=== PATIENT | male | born 1945 | race Caucasian/White ===

== ENCOUNTER 2016-09-05 15:28 | Inpatient (IN) | payer MEDICARE, OTHER ==
[~2016-09-05] VITALS: Ht 185.4 cm; Wt 75.6 kg
[2016-09-05 17:36] LABS: BASOPHILS 0.5 % (0-2); EOSINOPHILS 1.7 % (0-7); HEMATOCRIT 36.1 % (42.0-54.0); HEMOGLOBIN 11.7 g/dL (13.5-17.5); IMMATURE GRANULOCYTES 0.2 % (0-5); LYMPHOCYTES 17.8 % (15-50); MCH 28.9 pg (26.0-34.0); MCHC 32.4 g/dL (31.0-37.0); MCV 89.1 fL (80.0-100.0); MEAN PLATELET VOLUME 9.6 fL (7.4-10.4); MONOCYTES 11.2 % (2-11); NEUTROPHILS 68.6 % (40-80); PLATELET COUNT 290 10x3/uL (130-400); RBC 4.05 10x6/uL (4.20-6.10); RDW 14.6 % (11.5-14.5); WBC 10.9 10x3/uL (4.8-10.8)
[2016-09-05 17:55] LABS: ALBUMIN 2.9 g/dL (3.4-5.0); ALKALINE PHOSPHATASE 73 U/L (46-116); ALT (SGPT) 13 U/L (10-68); BILIRUBIN - TOTAL 0.19 mg/dL (0.2-1.3); CALC OSMOLALITY 280 mosm/kg (275-300); CALCIUM 7.9 mg/dL (8.5-10.1); CARBON DIOXIDE 27.9 mmol/L (21.0-32.0); CHLORIDE - SERUM 106 mmol/L (98-107); CREATININE - SERUM 1.7 mg/dL (0.6-1.3); GLUCOSE 100 mg/dL (74-106); POTASSIUM - SERUM 4.4 mmol/L (3.5-5.1); PROTEIN - SERUM 6.4 g/dL (6.4-8.2); SODIUM 139 mmol/L (136-145); UREA NITROGEN 21 mg/dL (7-18); eGFR NON AFRICAN AMERICAN 42 mL/min (90-120)
[2016-09-05 18:01] LABS: CKMB 0.9 U/L (0.0-3.6); CREATINE KINASE 104 UL (21-232); MAGNESIUM - SERUM 2.2 mg/dL (1.8-2.4); TROPONIN-I 0.026 ng/mL (0.000-0.060)
[2016-09-05 19:08] LABS: APPEARANCE HAZY (CLEAR); BILIRUBIN 1+ (NEGATIVE); COLOR YELLOW (YELLOW); GLUCOSE NEGATIVE (NEGATIVE); KETONE NEGATIVE (NEGATIVE); LEUKOCYTE ESTERASE TRACE (NEGATIVE); NITRITE NEGATIVE (NEGATIVE); PROTEIN TRACE mg/dL (NEGATIVE); SPECIFIC GRAVITY 1.025 (1.005-1.020); UROBILINOGEN NORMAL (NORMAL)
[2016-09-05 19:12] LABS: BACTERIA MODERATE /hpf (NONE SEEN); EPITHELIAL CELLS 0-5 /hpf (0-5); GRANULAR CAST 0-5 /lpf (NONE SEEN); MUCUS >1+ /lpf (NONE SEEN); RED CELLS - URINE 0-5 /hpf (0-5); WAXY CAST RARE /lpf (NONE SEEN); WHITE CELLS - URINE 0-5 /hpf (0-5)
[2016-09-05 19:13] LABS: AMORPHOUS SEDIMENT >1+ /lpf (NONE SEEN)
[2016-09-05 21:30] LABS: CKMB 0.4 U/L (0.0-3.6); CREATINE KINASE 118 UL (21-232)
--- NOTE | 2016-09-05 21:37 | NUR ---
PT BROUGHT IN BY BED TO UNIT BY ER STAFF.
--- NOTE | 2016-09-05 21:45 | NUR ---
PT IN BED WITH HOB UP FOR COMFORT. AND SON AT BEDSIDE. ALERT & ORIENTED. NO O2. LEFT HAND NS @ 75ML/HR. FALL PRECAUTIONS. TELEMETRY. BED IN LOWEST POSITION AND CALL LIGHT WITHIN REACH.
[2016-09-05] MEDS ORDERED: CELEXA40 MG PO (22:02)
[2016-09-05] MEDS ORDERED: NAMENDA XR28 MG PO (22:02)
[2016-09-05] MEDS ORDERED: CARAFATE1 G PO (22:04)
[2016-09-05] MEDS ORDERED: PLAVIX75 MG PO (22:04)
[2016-09-05] MEDS ORDERED: COZAAR100 MG PO (22:05)
[2016-09-05] MEDS ORDERED: NORVASC5 MG PO (22:05)
[2016-09-05] MEDS ORDERED: VITAMIN D31000 UNIT PO (22:06)
[2016-09-05] MEDS ORDERED: SAW PALMETTO450 MG PO (22:08)
[2016-09-05] MEDS ORDERED: GAS-X125 M1 PO (22:10)
--- NOTE | 2016-09-05 22:37 | NUR ---
RN TO DO ASSESSMENT.
[2016-09-06] VITALS: BP 99/58
--- NOTE | 2016-09-06 | NUR ---
PT LYING IN BED. EYES CLOSED. RESP. EVEN. BED IN LOWEST POSITION AND CALL LIGHT WITHIN REACH.
[2016-09-06 03:59] LABS: CKMB 0.5 U/L (0.0-3.6); CREATINE KINASE 122 UL (21-232); TROPONIN-I 0.019 ng/mL (0.000-0.060)
--- NOTE | 2016-09-06 07:28 | NUR ---
PATIENT RESTING QUIETLY IN THE BED. PATIENT IS AWAKE, ALERT, AND ORIENTED TO NAME ONLY. PATIENT IS DISORIENTED TO PLACE, TIME, AND SITUATION. PATIENT DENIES ANY PAIN AT PRESENT TIME. PATIENT STATES THAT HE DOES NOT REMEMBER FALLING AT HOME AND DOES NOT REMEMBER COMING TO THE HOSPITAL. BED ALARM IS ON FOR PATIENT'S SAFETY. IV SITE PATENT WITHOUT ANY S/S OF INFECTION NOTED IN PATIENT'S LEFT HAND. CALL LIGHT IN PATIENT'S REACH. PATIENT DENIES ANY NEEDS AT PRERSENT TIME. WILL MONITOR PATIENT.
[2016-09-06 07:34] VITALS: BP 117/64
[2016-09-06 11:00] LABS: CKMB 0.5 U/L (0.0-3.6); CREATINE KINASE 119 UL (21-232); TROPONIN-I < 0.017 ng/mL (0.000-0.060)
[2016-09-06 11:50] VITALS: BP 128/68
--- NOTE | 2016-09-06 14:15 | NUR ---
SCD'S ON LE
[2016-09-06 14:27] VITALS: BP 117/64; BMI 21.1
[2016-09-06 15:31] VITALS: BP 128/68
--- NOTE | 2016-09-06 16:30 | NUR ---
PATIENT UP TO THE BATHROOM WITH HIS ASSISTING HIM. NO COMPLAINTS OF DIZZINESS OR PAIN. PATIENT AMBULATED WITHOUT ANY PROBLEMS NOTED. WILL CONTINUE TO MONITOR PATIENT.
--- NOTE | 2016-09-06 19:44 | NUR ---
PY LYING IN BED WITH HOB UP FOR COMFORT. PT STATES HE FEELS HOT BUT HE HAS A PAIN LEVEL OF 0/10. SCD'S. TELEMETRY. NO O2. LEFT HAND NS @ 75ML/HR. BED ALARM. FAMILY @ BEDSIDE. BED IN LOWEST POSITION AND CALL LIGHT WIHTIN REACH.
[2016-09-06 20:59] VITALS: BP 153/80
[2016-09-07 01:20] VITALS: BP 158/83
--- NOTE | 2016-09-07 01:50 | NUR ---
PT LYING IN BED. EYES CLOSED. CHEST RISING AND FALLING. BED IN LOWEST POSITION AND CALL LIGHT WITHIN REACH.
--- NOTE | 2016-09-07 01:53 | NUR ---
PT'S BED ALARM WAS GOING OFF. WALKED INTO PT'S ROOM HE WAS ATTEMPTING TO GET OUT OF BED. TURNED OFF ALARM AND ASSISTED PT TO THE BATHROOM AND BACK TO BED. ON PT'S BEDSIDE TABLE WAS HIS TELEMETRY THAT HE HAD TAKEN OFF AND IV THAT HE HAD RIPPED OUT. CTAH TIP INTACT. INFORMED PT THAT HE IS IN THE HOSPITAL AND HE CANT TAKE THAT OFF OR TAKE OUT HIS IV PT STATES THAT HE WAS SORRY. WILL ATTEMOT TO REINSERT A NEW IV AND MONITOR APPLIED BACK TO PT.
--- NOTE | 2016-09-07 02:25 | NUR ---
LEFT FA 20 GAUGE INSERTED ON 1ST ATTEMPT. PT TOLERATED PROCEDURE WELL.
--- NOTE | 2016-09-07 03:05 | NUR ---
PT SITTING ON SIDE OF BED. BED ALARM IN PLACE SO THAT PT DOES NOT GET UP UNASSISTED. CPOC.
--- NOTE | 2016-09-07 03:09 | NUR ---
PT'S BED ALARM WAS GOING OFF. PT WAS LOOKING AROUND TRYING TO FIGURE OUT "HOW TO TURN IT OFF." PT'S SURGICAL ATTENDANT WAS LAYING ON BED AND ALSO HIS IV THAT HE RIPPED OUT. BLOOD ON BED. CATH TIP INTACT. WILL ATTEMPT TO RESITE IV AND WILL HOOK PT BACK UP TO MONITOR AND CHANGE PT'S BED.
--- NOTE | 2016-09-07 03:19 | NUR ---
PT RECEIVING BED BATH BY BENITA SERRATO. WILL ATTACH PT TO TELEMETRY WHEN PT IS DONE WITH BATH.
--- NOTE | 2016-09-07 03:26 | NUR ---
LOGISTICS LEAD PROVIDING TOTAL BED BATH/LINEN CHANGE. PT CONFUSED AND HAS PULLED OUT IV.
--- NOTE | 2016-09-07 05:02 | NUR ---
SINAI KEY INSERTED LEFT WRIST 20 GAUGE. PT TOLERATED PROCEDURE WELL.
[2016-09-07 05:04] VITALS: BP 147/84
[2016-09-07 05:28] LABS: BASOPHILS 0.6 % (0-2); EOSINOPHILS 3.3 % (0-7); HEMATOCRIT 38.8 % (42.0-54.0); HEMOGLOBIN 12.7 g/dL (13.5-17.5); IMMATURE GRANULOCYTES 0.2 % (0-5); LYMPHOCYTES 23.3 % (15-50); MCH 28.5 pg (26.0-34.0); MCHC 32.7 g/dL (31.0-37.0); MCV 87.2 fL (80.0-100.0); MEAN PLATELET VOLUME 10.1 fL (7.4-10.4); MONOCYTES 9.4 % (2-11); NEUTROPHILS 63.2 % (40-80); PLATELET COUNT 297 10x3/uL (130-400); RBC 4.45 10x6/uL (4.20-6.10); RDW 14.4 % (11.5-14.5); WBC 11.9 10x3/uL (4.8-10.8)
[2016-09-07 06:04] LABS: ALBUMIN 3.2 g/dL (3.4-5.0); ANION GAP 12.9 mmol/L (8-16); BILIRUBIN - TOTAL 0.44 mg/dL (0.2-1.3); CALCIUM 8.2 mg/dL (8.5-10.1); CARBON DIOXIDE 25.9 mmol/L (21.0-32.0); CREATININE - SERUM 1.4 mg/dL (0.6-1.3); POTASSIUM - SERUM 3.8 mmol/L (3.5-5.1); PROTEIN - SERUM 6.9 g/dL (6.4-8.2)
[2016-09-07 07:00] LABS: ERYTHROCYTE SEDIMENTATION RATE 15 mm/hr (0-20)
--- NOTE | 2016-09-07 07:30 | NUR ---
INTRODUCED MYSELF TO PT PRIMARY RN FOR TODAYS SHIFT. PT IS ONLY ORIENTED TO HIMSELF. UNWARE OF SITUATION, PLACE OR TIME. EXPLAINED TO PT EVERYTHING AND HE VERBALIZED UNDERSTANDING BUT PT IS KNOWN TO HAVE DEMENTIA AND NEEDS FREQUENTLY REORIENTED AND CUING. PT HAS L.WRIST PIV WITH DRSG CDI AND SWAB CAPS IN USE. SHIFT ASSESSMENT COMPLETED. PT HAS TELEMETRY IN PLACE AND BEING MONITERED PER Merus JIMMIE. PT DENIES ANY CURRENT PAIN OR NEEDS AT THIS TIME. CL IN REACH, BED IN LOWEST, SIDE RAILS X2 AND BUILT IN BED ALARM ON. WILL CPOC.
[2016-09-07 08:12] VITALS: BP 139/87
--- NOTE | 2016-09-07 09:15 | NUR ---
PT SET OFF BED ALARM TRYING TO GET OOB AND GET HIS BOOTS HE STATES. ASSISTED PTS LEGS BACK ON BED AND REMINDED HIM TO CALL ME IF NEEDING OOB. PT VERBALIZED UNDERSTANDING BUT DOES NOT STAY CONSISTENT AND EASILY FORGETS. WILL CTM.
--- NOTE | 2016-09-07 09:41 | NUR ---
PT GOT OOB AND PULLED OUT HIS L.WRIST PIV. WILL RESITE SHORTLY WHEN AVAILABLE. PT IS VERY PLEASANTLY CONFUSED JUST CONSTANTLY FORGETS AND NEEDS CONSTANT CUES/REMINDERS. MAY NEED FAMILY TO SIT WITH IF NEEDING HOSPITAL STAY MUCH LONGER.
[2016-09-07 11:47] VITALS: BP 124/70
--- NOTE | 2016-09-07 13:21 | NUR ---
20 GUAGE PIV INSERTED IN L.FA X1 STICK. INITIATED IVPB ZOSYN INFUSING OVER 4 HOURS. CHANGED OUT TUBING AND PROVIDED NEW TUBING AND DATED ALL LINES. PT HAS AT BEDSIDE AND WAS REORIENTED TO NOT TOUCHING SITE AND TRYING TO KEEP PIV PATENT. PT VERBALIZED UNDERSTANDING AND STATED HE WILL TRY TO REMEMBER. PROVIDED PT WITH A NOTE WELL TO TRY AND REMIND HIM. CL IN REACH, BED IN LOWEST, SIDE RAILS X2. BUILT IN BED ALARM ON. WILL CPOC.
--- NOTE | 2016-09-07 14:05 | NUR ---
STANDUP WEIGHT TAKEN AND RECORDED FOR PT TO HAVE SODIUM BICARB DRIP FOR RENAL PRECAUTION FOR CTA PLANNED. PT WEIGHS 75KG. BICARB WILL BE INITIATED VIA L.FA PIV 20 GUAGE AT 225ML/HR FOR ORDERED DOSE OF 3ML/KG/HR. 22 GUAGE PLACED X2 STICKS VIA R.HAND PIV FOR IV ANBX TO CONTINUE INFUSING. PT HAS FAMILY AT BEDSIDE AND PT VERBALIZED UNDERSTANDING. CL IN REACH, BED IN LOWEST, SIDE RAILS X2 WITH BUILT IN BED ALARM ON. WILL CTM.
--- NOTE | 2016-09-07 15:42 | NUR ---
STOPPED PTS BICARB ORDERED FOR 1HOUR PRIOR TO CTA. PT LEAVING ROOM NOW WITH CT TEAM. NO CURRENT NEEDS. WILL CTM.
[2016-09-07 15:54] VITALS: BP 127/69
--- NOTE | 2016-09-07 16:12 | NUR ---
PT BACK FROM CTA. BICARB RESTARTED AT 75ML/HR PER ORDERED DOSE OF 1ML/KG/HR X6 HOURS. PT RESTING IN BED AND DENIES ANY CURRENT PAIN OR NEEDS. CL IN REACH, BED IN LOWEST, SIDE RAILS X2, FAMILY AT BEDSIDE. WILL CPOC.
--- NOTE | 2016-09-07 16:30 | NUR ---
TEACHING PROVIDED OF CLEAN CATCH SPECIMEN FOR URINE SAMPLE. ASSISTED PT TO BR AND USED CLEANSING WIPES. URINE SPECIMEN COLLECTED AND SENT TO LAB.
--- NOTE | 2016-09-07 19:20 | NUR ---
ALERT/AWAKE TALKING TO VISITOR. DENIES PAIN OR ANY NEEDS. IV'S NOTED IN LT FA AND RT FA INTACT/PATENT. TELEMETRY SHOWS 72 SR. ORIENTED TO CALL LIGHT. BED ALARM IS ON.
[2016-09-07 20:39] VITALS: BP 119/66
--- NOTE | 2016-09-07 21:55 | NUR ---
ADMIN SCHED MEDS WITH SIPS OF WATER. REQUESTED LIGHTS OFF TO SLEEP.
[2016-09-08 00:07] VITALS: BP 123/62
--- NOTE | 2016-09-08 04:11 | NUR ---
ASSISTED TO BR TO VOID AND BACK TO BED. RESET BED ALARM.
[2016-09-08 05:12] VITALS: BP 114/59
[2016-09-08 05:28] LABS: BASOPHILS 0.6 % (0-2); EOSINOPHILS 3.6 % (0-7); HEMATOCRIT 36.4 % (42.0-54.0); IMMATURE GRANULOCYTES 0.3 % (0-5); LYMPHOCYTES 34.2 % (15-50); MCH 29.1 pg (26.0-34.0); MCV 88.3 fL (80.0-100.0); MEAN PLATELET VOLUME 10.1 fL (7.4-10.4); MONOCYTES 11.9 % (2-11); NEUTROPHILS 49.4 % (40-80); PLATELET COUNT 283 10x3/uL (130-400); RBC 4.12 10x6/uL (4.20-6.10); RDW 14.9 % (11.5-14.5); WBC 10.1 10x3/uL (4.8-10.8)
[2016-09-08 05:58] LABS: ALBUMIN 2.9 g/dL (3.4-5.0); ANION GAP 10.4 mmol/L (8-16); BILIRUBIN - TOTAL 0.5 mg/dL (0.2-1.3); CALCIUM 8.3 mg/dL (8.5-10.1); CARBON DIOXIDE 29.6 mmol/L (21.0-32.0); CREATININE - SERUM 1.4 mg/dL (0.6-1.3); PROTEIN - SERUM 6.2 g/dL (6.4-8.2)
--- NOTE | 2016-09-08 07:30 | NUR ---
AM ROUNDS COMPLETED. PT AWAKE AND ALERT SITTING UP IN BED. PT STATES "NICE TO SEE A FAMILIAR FACE" PT DOES HAVE DEMENTIA AND STAYS PLEASANTLY CONFUSED. PT IS ORIENTED TO SELF AND PLACE JUST NOT SITUATION OR TIME. PT STATES HE HAD A GOOD NIGHT AND DENIES ANY CURRENT PAIN OR NEEDS AT THIS TIME. CL IN REACH, BED IN LOWEST, SIDE RAILS X2 AND BUILT IN BED ALARM ON. WILL CPOC.
[2016-09-08 09:15] LABS: ANA REFLEX - DIRECT Negative (Negative)
[2016-09-08 09:40] VITALS: BP 117/71
--- NOTE | 2016-09-08 11:52 | NUR ---
PT JUST FINISHED HIS SHOWER. PROVIDED PT WITH HIS SCHEDULED MEDS BEFORE LUNCH AND ASSISTED BACK INTO BED. APPLIED TELEMETRY BACK IN PLACE AND UNWRAPPED PIVS. PT HAS AT BEDSIDE READY TO EAT. BED IN LOWEST, SIDE RAILS X2 AND BUILT IN BED ALARM ON. NO FURTHER NEEDS. WILL CPOC.
[2016-09-08 12:25] VITALS: BP 123/69
[2016-09-08 13:11] VITALS: Ht 185.4 cm; Wt 75.6 kg
[2016-09-08 13:51] LABS: CHOL - HDL RATIO 4.9 ratio (2.3-4.9); LDL-HDL RATIO 3.5 ratio (1.5-3.5)
--- NOTE | 2016-09-08 14:41 | EC ---
PATIENT:VINCENZO STEVENSON DATE OF SERVICE: 09/07/16 SEX: M MEDICAL RECORD: [id number] DATE OF : [birth year] LOCATION:D.M2 D.213 AGE OF PATIENT: 70 ADMISSION DATE: 09/07/16 REFERRING PHYSICIAN: INTERPRETING PHYSICIAN: DUSTY CALI MD ECHOCARDIOGRAM REPORT ECHO CHARGES 4 ECHO COMPLETE CLINICAL DIAGNOSIS: SYNCOPE ECHOCARDIOGRAPHIC MEASUREMENTS (adult normal given) AC root (d.<3.7cm) 3.4 cm LV Septum d (<1.2 cm> 1.3 cm Valve Excursion 2.0 cm LV Septum (systole) 1.8 cm Left Atria (s.<4.0cm> 3.2 cm LVPW d(<1.2cm) 1.3 cm RV (d.<2.3cm) 2.5 cm LVPW (sytole) 1.9 cm LV diastole(<5.6CM) 5.1 cm MV E-F(>70mm/sec) cm LV systole 3.0 cm LVOT Diameter 1.9 cm MV exc.(>10mm) cm Est.ejection fraction (50-75%) % Pericardial Effusion N DOPPLER: LVIT cm/sec A 88.0 cm/sec E 126 cm/sec LA cm/sec RVSP 39.0 mmHg LVOT 164 cm/sec AOP1/2T m/s Asc. Ao 174 cm/sec RVOT 80.0 cm/sec RA cm/sec PA 111 cm/sec AV Gradient Peak 12.1 mmHg AV Mean 6.9 mmHg AV Area 2.7 cm MV Gradient Peak 7.5 mmHg MV Mean 1.5 mmHg MV Area cm COMMENTS: [facility]: David BURKOE Fibrous Plasterer: 3 Dr. Brandt TAPE# PACS DATE OF SERVICE: 09/07/2016 Adequate 2D echo, color flow, spectral Doppler, and M-mode. Borderline LVH. LV internal dimension is normal. Wall motion is normal. EF is greater than or equal to 55%. Aortic valve is tricuspid. No evidence of stenosis by Doppler interrogation. Mild AI by color flow imaging. The left atrium is normal at 3.2 cm. Mitral valve shows no prolapse. Mild MR. Right-sided chamber is grossly normal. Mild TR. TRANSINT:[id number] Voice Confirmation ID: [id number] DOCUMENT ID: [id number] ECHOCARDIOGRAM REPORT [id number] VINCENZO STEVENSON GREGORY A MD at 1441 CC: [id number] DICTATION DATE: 09/07/16 1435 DONOR CENTER TECHNICIAN: 09/07/16 1844 ADM IN [facility] [address] [place] [address]
[2016-09-08 16:29] VITALS: BP 111/59
[2016-09-08 19:00] VITALS: BP 124/71
--- NOTE | 2016-09-08 21:50 | NUR ---
ADMIN SCHED MEDS WITH SIPS OF WATER AND THE SYRINGE OF MYCOMYST IN ORANGE JUICE. REQUESTED LIGHTS OFF TO SLEEP.
--- NOTE | 2016-09-09 01:30 | NUR ---
RESTING QUIETLY WITH EYES CLOSED. RR EVEN U/L. CL IN REACH.
--- NOTE | 2016-09-09 05:40 | NUR ---
ASSISTED TO BR AND BACK TO BED. ADMIN SCHED MED. REQUESTED ASSISTANCE WITH THE PHONE TO CALL HIS . NO OTHER NEEDS VOICED.
[2016-09-09 06:15] LABS: BASOPHILS 0.7 % (0-2); HEMATOCRIT 38.4 % (42.0-54.0); HEMOGLOBIN 12.7 g/dL (13.5-17.5); IMMATURE GRANULOCYTES 0.2 % (0-5); LYMPHOCYTES 23.7 % (15-50); MCH 29.2 pg (26.0-34.0); MCHC 33.1 g/dL (31.0-37.0); MCV 88.3 fL (80.0-100.0); MEAN PLATELET VOLUME 9.7 fL (7.4-10.4); MONOCYTES 11.6 % (2-11); NEUTROPHILS 58.8 % (40-80); PLATELET COUNT 286 10x3/uL (130-400); RBC 4.35 10x6/uL (4.20-6.10); RDW 14.6 % (11.5-14.5); WBC 11.4 10x3/uL (4.8-10.8)
[2016-09-09 06:22] VITALS: BP 152/81
[2016-09-09 06:44] LABS: ALBUMIN 3.2 g/dL (3.4-5.0); BILIRUBIN - TOTAL 0.5 mg/dL (0.2-1.3); CALCIUM 8.1 mg/dL (8.5-10.1); CARBON DIOXIDE 26.6 mmol/L (21.0-32.0); CREATININE - SERUM 1.2 mg/dL (0.6-1.3); POTASSIUM - SERUM 3.6 mmol/L (3.5-5.1); PROTEIN - SERUM 6.8 g/dL (6.4-8.2)
--- NOTE | 2016-09-09 08:18 | NUR ---
ASSESSMENT COMPLETED. PT IS ALERT, BUT COMFUSED AT TIMES. HAS A BED ALARM ON. REFUES SCDS. LEFT FA D5 1.5 WITH NA BICARB AT 75. DENIES ANY NEEDS. CALL LIGHT IN REACH WITH SR UP. WILL MONITOR
[2016-09-09 08:27] VITALS: BP 140/79
--- NOTE | 2016-09-09 10:56 | NUR ---
AMBULATED IN HALLWAY 500 FEET. TOLORATED WELL WITH GAIT STEADY. WILL MONITOR
[2016-09-09 12:05] VITALS: BP 114/67
--- NOTE | 2016-09-09 12:39 | NUR ---
UP IN BEDSIDE CHAIR. AT BEDSIDE. DENIES ANY NEEDS. WILL MONITOR
[2016-09-09 16:43] VITALS: BP 115/62
--- NOTE | 2016-09-09 17:33 | NUR ---
PT WITH HOB UP FOR DIET. PT ALERT AND ORINTED AT PRESENT TIME. FAMILY AT BEDSIDE. TELEMERTY SHOWS SR WITH RATE OF 66. WILL MONITOR
--- NOTE | 2016-09-09 19:25 | NUR ---
ALERT/AWAKE TALKING TO HIS IN ROOM. DENIES ANY NEEDS OR DISCOMFORTS. IV IN L FA INTACT WITH IVF INFUSING AT 75ML/HR. TELEMETRY SHOWS 64 SR ON MONITOR. REFUSED SCD'S ON. BED ALARM IS ON.
[2016-09-09 20:00] VITALS: BP 131/77
--- NOTE | 2016-09-09 21:20 | NUR ---
ADMIN SCHED MEDS. DENIES ANY NEEDS. BED ALARM IS ON. LEFT DOOR PARTIALLY OPEN TO MONITOR CLOSELY.
[2016-09-10] VITALS: BP 125/68
[2016-09-10 04:00] VITALS: BP 123/61
[2016-09-10 06:23] LABS: BASOPHILS 0.5 % (0-2); EOSINOPHILS 4.4 % (0-7); HEMATOCRIT 35.6 % (42.0-54.0); HEMOGLOBIN 11.7 g/dL (13.5-17.5); IMMATURE GRANULOCYTES 0.2 % (0-5); LYMPHOCYTES 29.9 % (15-50); MCHC 32.9 g/dL (31.0-37.0); MCV 88.1 fL (80.0-100.0); MEAN PLATELET VOLUME 10.1 fL (7.4-10.4); MONOCYTES 11.3 % (2-11); NEUTROPHILS 53.7 % (40-80); PLATELET COUNT 287 10x3/uL (130-400); RBC 4.04 10x6/uL (4.20-6.10); RDW 14.9 % (11.5-14.5)
[2016-09-10 06:49] LABS: ALBUMIN 2.9 g/dL (3.4-5.0); ANION GAP 10.7 mmol/L (8-16); BILIRUBIN - TOTAL 0.37 mg/dL (0.2-1.3); CALCIUM 7.9 mg/dL (8.5-10.1); CREATININE - SERUM 1.2 mg/dL (0.6-1.3); POTASSIUM - SERUM 3.7 mmol/L (3.5-5.1); PROTEIN - SERUM 6.4 g/dL (6.4-8.2)
--- NOTE | 2016-09-10 07:40 | NUR ---
ASSESSMENT COMPLETED. TELEMERTY SHOWS SB 57. LEFT ARM SL. NPO FOR EGD. PT IS COMFUSED AT TIMES. REFUSES TO WEAR SCDS.. DENIES ANY NEEDS. SR UP WITH CALL LIGHT IN REACH BED ALARM ON
[2016-09-10 08:58] VITALS: BP 126/69
--- NOTE | 2016-09-10 10:17 | NUR ---
FAMILY AT BEDSIDE. DENIES ANY NEEDS. CALL LIGHT IN REACH WITH SR UP. WILL MONITOR
--- NOTE | 2016-09-10 10:31 | NUR ---
RESTING QUIETLY EYES CLOSED RESP UNLABORED NAD NOTED
[2016-09-10 11:55] VITALS: BP 119/72
--- NOTE | 2016-09-10 12:29 | NUR ---
Nutrition Follow Up: Pt scheduled to have EGD procedure today and is currently on clear liquids. Prior to this pt was eating 92% meal avg on a regular diet. Wt gain since admit noted. No BM since admit. Meds noted. Labs reviewed. Rec advancing ANNA when medically feasible. RD following.
--- NOTE | 2016-09-10 16:00 | NUR ---
TO GI LAB PER BED.
--- NOTE | 2016-09-10 16:42 | NUR ---
Patient Name: VINCENZO STEVENSON Admission Status: ER Accout number: [id number] Admission Date: 09-07-2016 : 1945 Admission Diagnosis:SYNCOPE AND COLLAPSE Attending: MAR Current LOS: 3 Anticipated DC Date: 09-11-2016 Planned Disposition: Home Primary Insurance: MEDICARE A & B Discharge Planning Comments: * Is the patient Alert and Oriented? Yes 0 * How many steps to enter\exit or inside your home? 3-4 0 * PCP DR. CROCKETT IN [place] 0 * Pharmacy [facility] 0 * Preadmission Environment Home with Family 0 * ADLs Independent 0 * Equipment Cane Walker 0 * Other Equipment USES CANE PRIMARY, WALKER OCCAISIONALLY NO MEDICAL EQUIPMENT PROVIDER PREFERENCE 0 * List name and contact numbers for known caregivers / representatives who currently or will assist patient after discharge: CHEO STEVENSON, SPOUSE, 0 * Community resources currently utilized None 0 * Please name any agencies selected above. NONE 0 * Additional services required to return to the preadmission environment? No 0 * Can the patient safely return to the preadmission environment? Yes 0 * Has this patient been hospitalized within the prior 30 days at any hospital? No 0 CM MET WITH PT IN ROOM TO DISCUSS DISCHARGE PLANNING AND NEEDS. PT REPORTS LIVING AT HOME INDEPENDENTLY WITH HIS SPOUSE. PT HAS CANE AND WALKER WITH NO MEDICAL EQUIPMENT PROVIDER PREFERENCE. PT HAS NO OUTSIDE SERVICES ASSISTING IN THE HOME. CM DISCUSSED AVAILABILITY OF HOME HEALTH, REHAB SERVICES AND MEDICAL EQUIPMENT. PT DENIES DISCHARGE NEEDS, REPORTS HIS SPOUSE WILL PICK HIM UP FOR DISCHARGE HOME. IMPORTANT MESSAGE FROM MEDICARE PROVIDED AND EXPLAINED. Cancer Registrar: Kamran Echeverria
--- NOTE | 2016-09-10 17:23 | NUR ---
BACK FROM GI LAB. V/S STABLE . AWAKE AND ALERT. DENIES ANY NEEDS. FAMILY AT BEDSIDE. PT EATING DINNER WITHOUT ANY DIIICULTY. WILL MONITOR.
--- NOTE | 2016-09-10 18:32 | NUR ---
RESTING QUIETLY. DENIES ANY NEEDS, FAMILY AT BEDSIDE WILL MONITOR
--- NOTE | 2016-09-10 19:15 | NUR ---
RECEIVED REPORT, ASSUMED CARE OF PATIENT. ALERT/AWAKE DENIES ANY NEEDS OR DISCOMFORTS. HIS IS PRESENT IN ROOM. NO QUESTIONS OR CONCERNS VOICED.
[2016-09-10 20:00] VITALS: BP 132/74
[2016-09-11 04:00] VITALS: BP 138/78
--- NOTE | 2016-09-11 04:18 | NUR ---
HAS BEEN GETTING OUT OF BED MULTIPLE TIMES DURING THE NIGHT. REORIENTED TO BEING IN THE HOSPITAL.
[2016-09-11 05:41] LABS: BASOPHILS 0.8 % (0-2); EOSINOPHILS 3.9 % (0-7); HEMATOCRIT 36.9 % (42.0-54.0); IMMATURE GRANULOCYTES 0.2 % (0-5); LYMPHOCYTES 25.6 % (15-50); MCH 28.6 pg (26.0-34.0); MCHC 32.5 g/dL (31.0-37.0); MCV 87.9 fL (80.0-100.0); MEAN PLATELET VOLUME 9.9 fL (7.4-10.4); MONOCYTES 11.6 % (2-11); NEUTROPHILS 57.9 % (40-80); PLATELET COUNT 279 10x3/uL (130-400); RDW 14.6 % (11.5-14.5); WBC 11.6 10x3/uL (4.8-10.8)
[2016-09-11 06:16] LABS: ALBUMIN 3.1 g/dL (3.4-5.0); ANION GAP 13.4 mmol/L (8-16); BILIRUBIN - TOTAL 0.4 mg/dL (0.2-1.3); CALCIUM 8.4 mg/dL (8.5-10.1); CARBON DIOXIDE 25.3 mmol/L (21.0-32.0); CREATININE - SERUM 1.3 mg/dL (0.6-1.3); POTASSIUM - SERUM 3.7 mmol/L (3.5-5.1); PROTEIN - SERUM 6.6 g/dL (6.4-8.2)
--- NOTE | 2016-09-11 07:45 | NUR ---
REPORT RECIEVED. PT RESTING QUIETLY, RR EVEN AN D UNLABORED, ALERT AND ORIETNED. PT DENIES NEEDS AT THIS TIME. INTRODCUED SELF AND PLACED NAME ON WHITE BOARD. WILL CTM.
[2016-09-11 09:34] VITALS: BP 115/73
[2016-09-11] MEDS ORDERED: PEPCID40 MG PO (12:04)
[2016-09-11] MEDS ORDERED: PROTONIX40 MG PO (12:04)
[2016-09-11] MEDS ORDERED: AUGMENTIN 875-11 TAB PO (12:04)
[2016-09-11 12:38] VITALS: BP 120/71
--- NOTE | 2016-09-11 16:47 | NUR ---
PT DISCHARGED. REMOVED TELEMETRY BOX AND RETURNED TO THE DRYER OPERATOR. IV REMOVED WITH CATHETER TIP INTACT. DISCHARGED INSTRUCTIONS PROVIDED TO PT AND FAMILY, BOTH VERBALIZED UNDERSTANDING. WILL CALL WHEN READY TO BE D/C. PT WILL BE GOING HOME IN PERSONAL VEHICLE WITH .
== END 2016-09-11 17:00 | disposition home or self-care (01) | DRG 67 ==
LOC: D.ER 15:28 → EDBD 15:28 → D.M2 21:11 → OBSVTIME 21:11 → D.M2 21:11
PROVIDERS: Family Medicine; Internal Medicine Gastroenterology; Internal Medicine Pulmonary Disease; Physician Assistant Medical; ADMIT Family Medicine
PROC: 0DJ08ZZ Inspection of Upper Intestinal Tract, Via Natural or Artificial Opening Endoscopic (ICD-10-PCS; principal; 2016-09-10 16:00)
DX: I65.23 Occlusion and stenosis of bilateral carotid arteries (principal); J69.0 Pneumonitis due to inhalation of food and vomit; I69.919 Unspecified symptoms and signs involving cognitive functions following unspecified cerebrovascular disease; F01.50 Vascular dementia, unspecified severity, without behavioral disturbance, psychotic disturbance, mood disturbance, and anxiety; I25.10 Atherosclerotic heart disease of native coronary artery without angina pectoris; K44.9 Diaphragmatic hernia without obstruction or gangrene; I12.9 Hypertensive chronic kidney disease with stage 1 through stage 4 chronic kidney disease, or unspecified chronic kidney disease; N18.9 Chronic kidney disease, unspecified; D64.9 Anemia, unspecified; I44.0 Atrioventricular block, first degree; K21.0 Gastro-esophageal reflux disease with esophagitis; K25.9 Gastric ulcer, unspecified as acute or chronic, without hemorrhage or perforation; I08.3 Combined rheumatic disorders of mitral, aortic and tricuspid valves; R40.2363 Coma scale, best motor response, obeys commands, at hospital admission; R40.2143 Coma scale, eyes open, spontaneous, at hospital admission; R40.2243 Coma scale, best verbal response, confused conversation, at hospital admission; Z95.1 Presence of aortocoronary bypass graft

== ENCOUNTER 2017-01-24 17:31 | Emergency (ER) | payer MEDICARE, OTHER ==
[~2017-01-24 17:31] MED LIST: AUGMENTIN 875-11 TAB PO; CARAFATE1 G PO; CELEXA40 MG PO; COZAAR100 MG PO; GAS-X125 M1 PO; NAMENDA XR28 MG PO; NORVASC5 MG PO; PEPCID40 MG PO; PLAVIX75 MG PO; PROTONIX40 MG PO; SAW PALMETTO450 MG PO; VITAMIN D31000 UNIT PO
[2017-01-24 19:05] LABS: BASOPHILS 0.4 % (0-2); HEMATOCRIT 38.1 % (42.0-54.0); HEMOGLOBIN 12.3 g/dL (13.5-17.5); IMMATURE GRANULOCYTES 0.2 % (0-5); LYMPHOCYTES 16.5 % (15-50); MCH 28.1 pg (26.0-34.0); MCHC 32.3 g/dL (31.0-37.0); MCV 87.2 fL (80.0-100.0); MEAN PLATELET VOLUME 9.8 fL (7.4-10.4); MONOCYTES 8.9 % (2-11); PLATELET COUNT 297 10x3/uL (130-400); RBC 4.37 10x6/uL (4.20-6.10); RDW 13.8 % (11.5-14.5); WBC 10.3 10x3/uL (4.8-10.8)
[2017-01-24 19:25] LABS: ALBUMIN 3.3 g/dL (3.4-5.0); ALKALINE PHOSPHATASE 101 U/L (46-116); ALT (SGPT) 14 U/L (10-68); CALC OSMOLALITY 281 mosm/kg (275-300); CALCIUM 8.6 mg/dL (8.5-10.1); CARBON DIOXIDE 28.6 mmol/L (21.0-32.0); CHLORIDE - SERUM 105 mmol/L (98-107); GLUCOSE 102 mg/dL (74-106); POTASSIUM - SERUM 3.8 mmol/L (3.5-5.1); SODIUM 141 mmol/L (136-145); UREA NITROGEN 15 mg/dL (7-18); eGFR NON AFRICAN AMERICAN 78 mL/min (90-120)
[2017-01-24 19:28] LABS: TROPONIN-I < 0.017 ng/mL (0.000-0.060)
[2017-01-24 20:18] LABS: AMYLASE - SERUM 68 U/L (25-115); LIPASE 146 U/L (73-393)
== END 2017-01-24 21:11 | disposition home or self-care (01) ==
LOC: D.ER 17:31
PROVIDERS: Physician Assistant
DX: R11.2 Nausea with vomiting, unspecified (principal); I10 Essential (primary) hypertension; F03.90 Unspecified dementia, unspecified severity, without behavioral disturbance, psychotic disturbance, mood disturbance, and anxiety; Z86.73 Personal history of transient ischemic attack (TIA), and cerebral infarction without residual deficits

== ENCOUNTER → 2017-04-05 12:37 | Outpatient (CLI) | payer MEDICARE, OTHER ==
[2016-09-08 13:11] VITALS: BMI 22.1
[2017-04-05 14:35] LABS: BASOPHILS 0.9 % (0-2); EOSINOPHILS 3.9 % (0-7); HEMATOCRIT 37.9 % (42.0-54.0); HEMOGLOBIN 12.4 g/dL (13.5-17.5); IMMATURE GRANULOCYTES 0.1 % (0-5); LYMPHOCYTES 30.4 % (15-50); MCH 28.6 pg (26.0-34.0); MCHC 32.7 g/dL (31.0-37.0); MCV 87.5 fL (80.0-100.0); MEAN PLATELET VOLUME 10.3 fL (7.4-10.4); MONOCYTES 10.4 % (2-11); NEUTROPHILS 54.3 % (40-80); PLATELET COUNT 284 10x3/uL (130-400); RBC 4.33 10x6/uL (4.20-6.10); RDW 14.6 % (11.5-14.5)
[2017-04-05 15:38] LABS: ALBUMIN 3.5 g/dL (3.4-5.0); ANION GAP 10.5 mmol/L (8-16); BILIRUBIN - TOTAL 0.18 mg/dL (0.2-1.3); CALCIUM 8.6 mg/dL (8.5-10.1); CARBON DIOXIDE 28.7 mmol/L (21.0-32.0); CHOL - HDL RATIO 4.8 ratio (2.3-4.9); CREATININE - SERUM 1.1 mg/dL (0.6-1.3); LDL-HDL RATIO 3.1 ratio (1.5-3.5); POTASSIUM - SERUM 4.2 mmol/L (3.5-5.1); PROTEIN - SERUM 6.8 g/dL (6.4-8.2); THYROID STIMULATING HORMONE 1.91 uIU/mL (0.36-3.74)
[2017-04-05 15:39] LABS: SCREENING PSA (YEARLY) 0.84 ng/mL (0.00-4.00)
== END | disposition home or self-care (01) ==
LOC: D.US 12:37
PROVIDERS: Family Medicine
DX: G54.9 Nerve root and plexus disorder, unspecified (principal); K44.9 Diaphragmatic hernia without obstruction or gangrene; M54.5 Low back pain; I10 Essential (primary) hypertension; Z12.5 Encounter for screening for malignant neoplasm of prostate; Z13.6 Encounter for screening for cardiovascular disorders; E78.5 Hyperlipidemia, unspecified; G45.9 Transient cerebral ischemic attack, unspecified

== ENCOUNTER 2018-05-10 16:15 | Inpatient (IN) | payer MEDICARE, OTHER ==
[~2018-05-10] VITALS: Ht 185.4 cm; Wt 74.8 kg
[2018-05-10 17:13] LABS: BASOPHILS 0.5 % (0-2); EOSINOPHILS 1.2 % (0-7); HEMATOCRIT 35.9 % (42.0-54.0); HEMOGLOBIN 11.9 g/dL (13.5-17.5); IMMATURE GRANULOCYTES 0.3 % (0-5); LYMPHOCYTES 6.4 % (15-50); MCH 29.5 pg (26.0-34.0); MCHC 33.1 g/dL (31.0-37.0); MCV 89.1 fL (80.0-100.0); MEAN PLATELET VOLUME 9.6 fL (7.4-10.4); NEUTROPHILS 78.6 % (40-80); PLATELET COUNT 255 10x3/uL (130-400); RBC 4.03 10x6/uL (4.20-6.10); RDW 14.9 % (11.5-14.5); WBC 7.7 10x3/uL (4.8-10.8)
[2018-05-10 17:21] LABS: APTT 33.7 SECONDS (22.8-39.4); INR 1.13 (0.85-1.17)
[2018-05-10 17:28] LABS: ALBUMIN 3.3 g/dL (3.4-5.0); ALKALINE PHOSPHATASE 72 U/L (46-116); ALT (SGPT) 19 U/L (10-68); BILIRUBIN - TOTAL 0.32 mg/dL (0.2-1.3); CALC OSMOLALITY 277 mosm/kg (275-300); CALCIUM 8.1 mg/dL (8.5-10.1); CARBON DIOXIDE 24.6 mmol/L (21.0-32.0); CHLORIDE - SERUM 102 mmol/L (98-107); CREATININE - SERUM 1.7 mg/dL (0.6-1.3); GLUCOSE 108 mg/dL (74-106); POTASSIUM - SERUM 3.6 mmol/L (3.5-5.1); PROTEIN - SERUM 6.9 g/dL (6.4-8.2); SODIUM 137 mmol/L (136-145); UREA NITROGEN 21 mg/dL (7-18); eGFR NON AFRICAN AMERICAN 42 mL/min (90-120)
[2018-05-10 17:44] LABS: CKMB 0.5 U/L (0.0-3.6); CREATINE KINASE 355 UL (21-232); MAGNESIUM - SERUM 1.7 mg/dL (1.8-2.4); TROPONIN-I < 0.017 ng/mL (0.000-0.060)
[2018-05-10 18:44] VITALS: BP 122/68
[2018-05-10 21:11] VITALS: BP 140/76
[2018-05-10] MEDS ORDERED: MULTI-DAY VITAM1 TAB PO (22:51)
[2018-05-10] MEDS ORDERED: CEREFOLIN TAB1 TAB PO (22:52)
[2018-05-10 23:16] VITALS: BP 140/76; BMI 21.8
[2018-05-11 01:32] VITALS: BP 154/74
--- NOTE | 2018-05-11 09:10 | HP ---
PATIENT: VINCENZO ALLAN MEDICAL RECORD: [id number] ACCOUNT: [id number] LOCATION:D.MS [place] : [birth year] ADMISSION DATE: 05/10/18 PCP: THOMAS PEREZ DO HISTORY AND PHYSICAL EXAMINATION HISTORY OF PRESENT ILLNESS: Ms. Allan is a 72-year-old white female who presents to the Emergency Room today complaining of increasing shortness of breath, energy unable to walk. He just saw his cardiology yesterday and everything checked out fine. Chest x-ray in the Emergency Room was compatible with pneumonia. There is no edema. No chest pain. He has had a cough and has got rhonchi on exam, he is slightly wheezy. White count is actually okay, so have to be worried about atypicals. He is going to be admitted this time for further evaluation and therapy. PAST MEDICAL HISTORY: Significant for previous CVA, dementia, hypertension, coronary artery disease, depression, and GERD. PAST SURGICAL HISTORY: Include bypass surgery. ALLERGIES: None known. HOME MEDICATIONS: Include Plavix 75 mg a day, losartan 100 mg a day, amlodipine 5 mg a day, citalopram 40 mg a day, Namenda XR 28 mg a day, famotidine 40 mg a day, Pantoprazole 40 mg a day, Carafate slurry, vitamin D3, and Saw palmetto. FAMILY HISTORY: Significant for heart disease. SOCIAL HISTORY: The patient does not smoke or drink. He is . REVIEW OF SYSTEMS: No fever. Increasing shortness of breath, productive cough with wheezing. No chest pain, decreased appetite, poor exercise tolerance. No edema. PHYSICAL EXAMINATION: GENERAL: Elderly white male who appears a little older than his stated age. He is in no distress at this time. HEENT: Sclerae is nonicteric. NECK: Soft and supple. HEART: Regular with III/ murmur. LUNGS: Bilateral rhonchi. ABDOMEN: Soft. No edema. He is currently in a wheelchair. NEUROLOGIC: Incomplete. IMPRESSION: 1. Pneumonia. 2. Dementia. 3. Hypertension. 4. Coronary artery disease, stable. 5. Gastroesophageal reflux disease. PLAN: Admit, IV antibiotics, pulmonary toilet, DVT prophylaxis. See orders for rest of the plan. TRANSINT:[id number] Voice Confirmation ID: [id number] DOCUMENT ID: [id number] HISTORY AND PHYSICAL [id number] VINCENZO ALLAN MATTHEW DO at 0910 CC: [id number] DICTATION DATE: 05/10/182040 SOLAR WATER HEATER INSTALLER: 05/10/18 2335 ADM IN [place] [id number] [place] [id number]
[2018-05-11 09:19] VITALS: BP 121/67
[2018-05-11 12:27] VITALS: BP 164/90
[2018-05-11 13:11] VITALS: Ht 185.4 cm; Wt 74.8 kg
--- NOTE | 2018-05-11 15:03 | NUR ---
late entry 1425 Went to do my CM assessment, when visiting with him, he was very SOB and RR 28. He had a hard time talking. POX was 90-92% with HR 108. I told patient's COMMERCIAL DRONE PILOT (YESI [place]) she placed him on 2L O2 via NC. POX 95 % and HR is now 92. RR is still 28.
--- NOTE | 2018-05-11 15:38 | MORECARE ---
CASE MANAGEMENT DISCHARGE SUMMARY PATIENT: VINCENZO STEVENSON UNIT: [id number] ADM DATE: 05/10/18 AGE: 72 : 43 SEX: M ROOM/BED: D.2215 AUTHOR: HANNAHDOC PHYSICIAN: REFERRING PHYSICIAN: DENILSON WILKINSON DO DATE OF SERVICE: 05/11/18 Discharge Plan Patient Name: VINCENZO STEVENSON Facility: [facility]:[place] : 1945 Planned Disposition: Home or Self Care Anticipated Discharge Date: Discharge Date: Expected LOS: Initial Reviewer: [email or web address] Initial Review Date: 05/10/2018 Generated: 05/11/18 4:38 pm Comments DCP- Discharge Planning Updated by [email or web address]: Aminah Johnson on 05/11/18 2:[address] Patient Name: VINCENZO STEVENSON Admission Status: ER Accout number: [id number] Admission Date: 05-10-2018 : 1945 Admission Diagnosis: Attending: DENILSON WILKINSON Current LOS: 1 Anticipated DC Date: Planned Disposition: Home or Self Care Primary Insurance: MEDICARE A & B Discharge Planning Comments: CM met with patient to complete initial dc planning assessment. CM educated patient on the CM role and verbal consent given by patient to complete assessment. Patient lives at home where he lives by himself, and states he is independent with his care. His son who lives close by stops in multiple times a day to check on him. At discharge patient plans to return home and feels this is a safe discharge. CM discussed availability of home health, rehab services, and medical equipment. He has a cane, but does not use it all the time. His son Leon, will be the one to drive him home. Patient denied known discharge needs at this time. They will see/talk about home health, but does not think they will need it. CM will continue to follow and will assist as needed with dc plans/needs. Billing And Quality Technician: Aminah Johnson DCPIA - Discharge Planning Initial Assessment Updated by [email or web address]: Aminah Johnson on 05/11/18 3:31 pm * Is the patient Alert and Oriented? Yes * How many steps to enter\exit or inside your home? * PCP N[facility] * Pharmacy [facility] * Preadmission Environment Home Alone * ADLs Independent * Equipment Cane * List name and contact numbers for known caregivers / representatives who currently or will assist patient after discharge: LEON (SON) [phone] * Verbal permission to speak to the caregivers and representatives has been obtained from the patient. Yes * Community resources currently utilized None * Additional services required to return to the preadmission environment? No * Can the patient safely return to the preadmission environment? Yes * Has this patient been hospitalized within the prior 30 days at any hospital? No Patient Name: VINCENZO STEVENSON Page [id number] at 1538 All edits/amendments must be made on the electronic document DICTATION DATE: 05/11/181536 HAZARDOUS MATERIAL TECHNICIAN: SUE 05/11/181536 RPT#: [id number] DC DATE: STATUS: ADM IN [facility] [address] [place] [address] END OF REPORT
--- NOTE | 2018-05-11 16:51 | NUR ---
Rehab Note- Acute Inpatient Rehab prescreen order received. The patient is a new admit with acute hypoxic respiratory distress and continues to have an acute work up- has a pending PT & OT Eval. Will continue to follow at this time. Thank you for this referral! Daria Bashir RN CLinical Liaison, [facility] Rehab
[2018-05-11 17:13] LABS: BASOPHILS 0.6 % (0-2); EOSINOPHILS 0 % (0-7); HEMATOCRIT 36.3 % (42.0-54.0); HEMOGLOBIN 12.5 g/dL (13.5-17.5); IMMATURE GRANULOCYTES 0.1 % (0-5); MCH 29.9 pg (26.0-34.0); MCHC 34.4 g/dL (31.0-37.0); MEAN PLATELET VOLUME 9.7 fL (7.4-10.4); NEUTROPHILS 60.3 % (40-80); PLATELET COUNT 223 10x3/uL (130-400); RBC 4.18 10x6/uL (4.20-6.10); WBC 6.9 10x3/uL (4.8-10.8)
[2018-05-11 17:15] LABS: MCV 86.8 fL (80.0-100.0)
[2018-05-11 17:51] LABS: ALBUMIN 3.3 g/dL (3.4-5.0); ANION GAP 13.7 mmol/L (8-16); BILIRUBIN - TOTAL 0.27 mg/dL (0.2-1.3); CALCIUM 8.2 mg/dL (8.5-10.1); CARBON DIOXIDE 24.8 mmol/L (21.0-32.0); CREATININE - SERUM 1.5 mg/dL (0.6-1.3); POTASSIUM - SERUM 3.5 mmol/L (3.5-5.1); PROTEIN - SERUM 6.9 g/dL (6.4-8.2)
[2018-05-11 18:03] VITALS: BP 113/71
--- NOTE | 2018-05-11 19:00 | NUR ---
REPORT RECEIVED AND CARE OF PT ASSUMED. PT LYING IN SUPINE POSITION VISITING WITH SON. IV IN RIGHT FA SALINE LOCKED. WILL MONITOR FOR NEEDS. BED ALARM ACTIVATED.
--- NOTE | 2018-05-11 20:44 | NUR ---
HS MEDICATIONS GIVEN TO INCLUDE CONNECTING TO IV FOR IV LEVAQUIN. PT ATTEMPTING TO GET UP AND GET DRESSED SO HE CAN LEAVE. RE-ORIENTED AND GOT BACK IN BED. SON IS AT BEDSIDE.
[2018-05-11 21:00] VITALS: BP 161/93
--- NOTE | 2018-05-11 21:55 | NUR ---
PT CLIMBING OVER BEDRAIL...ALARM SOUNDING. HIS SON JUST LEFT AND HE IS MORE AGGITATED. GOT HIM SETTLED BACK IN BED AND RE-ORIENTED. TRYING TO PULL ON IV...COVERED WITH BLANKETS AND TRIED TO MAKE PT UNDERSTAND HE WAS GETTING MEDICATION THERE. ALARMS ACTIVATED. WILL CONTINUE TO MONITOR ANGELILEY.
--- NOTE | 2018-05-11 22:54 | NUR ---
PT PULLED OUT IV AND BECAME COMBATIVE WHEN TRYING TO KEEP IN THE BED. PAGED DIRECTOR OF IN SERVICE EDUCATION PHYSICIAN AND RECEIVED ORDER FOR HALDOL 1-5 MG IM Q6HR PRN AGGITATION / AGGRESSION. PT CALMED DOWN ON HIS OWN AT THIS TIME, SO WILL HOLD OFF ON IM INJECTION FOR NOW.
--- NOTE | 2018-05-11 23:30 | NUR ---
PT CLIMBING OVER SIDERAIL AND REFUSING TO KEEP O2 ON. GAVE HALDOL 2MG IM VIA RIGHT VENTROGLUTEAL WITH TRANSACTION MANAGER ASSISTANCE. WILL MONITOR FOR EFFECTIVENESS.
[2018-05-12] VITALS (7 sets, daily range): BP systolic 114–171; BP diastolic 67–96
--- NOTE | 2018-05-12 05:32 | NUR ---
PT CONTINUES TO GET UP AND TRY TO LEAVE ROOM....WANTS TO GO HOME. LAST SEVERAL HOURS BED ALARM GOING OFF EVERY 10 MINUTES...STAFF HAVING TO STAY IN ROOM TO KEEP HIM SAFE. NOW PT IS PUNCHING AND HITTING WHEN WE TRY TO GUIDE HIM BACK TO BED. CALLED WATERPROOFER HELPER PHYSICIAN, ALESIA ARAYA AND RECEIVED ORDER TO PLACE PT IN LAURA BED.
[2018-05-12 06:21] LABS: BASOPHILS 0.6 % (0-2); EOSINOPHILS 0.2 % (0-7); HEMOGLOBIN 12.3 g/dL (13.5-17.5); IMMATURE GRANULOCYTES 0.2 % (0-5); LYMPHOCYTES 20.2 % (15-50); MCH 28.9 pg (26.0-34.0); MCHC 33.2 g/dL (31.0-37.0); MCV 86.9 fL (80.0-100.0); MEAN PLATELET VOLUME 9.9 fL (7.4-10.4); MONOCYTES 15.4 % (2-11); NEUTROPHILS 63.4 % (40-80); PLATELET COUNT 233 10x3/uL (130-400); RBC 4.26 10x6/uL (4.20-6.10); WBC 6.3 10x3/uL (4.8-10.8)
[2018-05-12 06:39] LABS: ALBUMIN 3.1 g/dL (3.4-5.0); ANION GAP 13.1 mmol/L (8-16); BILIRUBIN - TOTAL 0.39 mg/dL (0.2-1.3); CARBON DIOXIDE 24.3 mmol/L (21.0-32.0); CREATININE - SERUM 1.3 mg/dL (0.6-1.3); POTASSIUM - SERUM 3.4 mmol/L (3.5-5.1); PROTEIN - SERUM 6.9 g/dL (6.4-8.2)
--- NOTE | 2018-05-12 07:47 | NUR ---
MOVING IN BED,WITHOUT DISTRESS.WANTS OUT OF BED IN CHAIR.LAURA BED FOR SAFETY.CALL LIGHT IN REACH
--- NOTE | 2018-05-12 07:53 | NUR ---
CALL FROM SON, PASSWORD CONFIRMED. PT STATUS UPDATE GIVEN
--- NOTE | 2018-05-12 08:00 | NUR ---
ASSESSMENT PER FLOW SHEET. PT IS WITHOUT DISTRESS.DOOR OPEN TO MONITOR
--- NOTE | 2018-05-12 11:19 | NUR ---
Rehab Note- Reviewed medical receord, the patient has been noted to be climbing over side rails, aggitated, and combative with staff and been placed in a nyla bed. He is not appropriate for acute inpatient rehab at this time. Will continue to follow at this time. Pending PT & OT Evals. Thank you for this referral! Daria Bashir RN Clinical Liaison, [facility] Rehab
--- NOTE | 2018-05-12 15:02 | NUR ---
FAMILY TO VISIT IN ROOM. LAURA BED OPEN WHILE THEY ARE HERE
--- NOTE | 2018-05-12 17:32 | NUR ---
REMANS OUT OF LAURA BED,FAMILY IS IN ROOM.MONITOR
--- NOTE | 2018-05-12 19:00 | NUR ---
REPORT RECEIVED AND CARE OF PT ASSUMED. PT LYING IN LAURA BED WITH BOTH ZIPPER SIDES OPEN AT THIS TIME. SON IS AT BEDSIDE.
--- NOTE | 2018-05-12 20:14 | NUR ---
HS MEDICATIONS GIVEN. WILL CONTINUE TO MONITOR FOR NEEDS.
[2018-05-13 00:54] VITALS: BP 122/76
[2018-05-13 05:26] VITALS: BP 144/84
[2018-05-13 07:18] LABS: BASOPHILS 0.5 % (0-2); EOSINOPHILS 0.2 % (0-7); HEMATOCRIT 35.7 % (42.0-54.0); HEMOGLOBIN 12.1 g/dL (13.5-17.5); IMMATURE GRANULOCYTES 0.2 % (0-5); LYMPHOCYTES 16.4 % (15-50); MCH 29.2 pg (26.0-34.0); MCHC 33.9 g/dL (31.0-37.0); MEAN PLATELET VOLUME 9.7 fL (7.4-10.4); MONOCYTES 14.9 % (2-11); NEUTROPHILS 67.8 % (40-80); PLATELET COUNT 241 10x3/uL (130-400); RBC 4.15 10x6/uL (4.20-6.10); WBC 5.9 10x3/uL (4.8-10.8)
--- NOTE | 2018-05-13 08:00 | NUR ---
PATIENT SITTING UP IN CHAIR EATING ASSISTED BY SON. NO COMPLAINTS OR PROBLEMS. CALL LIGHT WITHIN REACH.
[2018-05-13 08:14] LABS: ALBUMIN 3.1 g/dL (3.4-5.0); ANION GAP 15.4 mmol/L (8-16); BILIRUBIN - TOTAL 0.36 mg/dL (0.2-1.3); CARBON DIOXIDE 24.2 mmol/L (21.0-32.0); CREATININE - SERUM 1.3 mg/dL (0.6-1.3); POTASSIUM - SERUM 3.6 mmol/L (3.5-5.1); PROTEIN - SERUM 6.8 g/dL (6.4-8.2)
[2018-05-13 09:04] VITALS: BP 147/78
[2018-05-13 12:15] VITALS: BP 106/51
[2018-05-13 17:51] VITALS: BP 118/80
--- NOTE | 2018-05-13 18:50 | NUR ---
PATIENT IN BED WITH NO COMPLAINTS OR SIGNS OF DISTRESS. FAMILY AT BEDSIDE. CALL LIGHT WITHIN REACH.
--- NOTE | 2018-05-13 19:00 | NUR ---
REPORT RECEIVED AND CARE OF PT ASSUMED. PT LYING IN LAURA BED WITH ALL FLAPS OPEN AT THIS TIME. SON IS AT BEDSIDE. NO IV. TELEMETRY IN PLACE. WILL MONITOR FOR NEEDS.
[2018-05-13 20:00] VITALS: BP 130/54
--- NOTE | 2018-05-13 20:30 | NUR ---
PT'S SON LEFT AND PT IMMEDIATELY STARTED YELLING OUT. ATTEMPTED TO RE-ORIENT. TOOK TELEMETRY AWAY PT HAS OFF AND TRYING TO PULL IT APART. WILL MONITOR CLOSELY.
--- NOTE | 2018-05-13 20:40 | NUR ---
PT LET OUT OF LAURA BED AND AMBULATED IN ROOM. TOOK TO RESTROOM AND PLACED BACK IN BED AND POSITIONED FOR COMFORT. ALL FLAPS ZIPPED AND SECURED. CALL LIGHT WITHIN REACH.
--- NOTE | 2018-05-13 20:52 | NUR ---
HS MEDICATIONS GIVEN TO INCLUDE TYLENOL FOR PAIN. WILL MONITOR FOR EFFECTIVENESS. LAURA BED IN USE AND ALL FLAPS SECURED.
[2018-05-14] VITALS: BP 146/85
--- NOTE | 2018-05-14 01:04 | NUR ---
DISCONTINUED TELEMETRY PT WILL NOT KEEP ON AND DAMAGING WIRES.
[2018-05-14 04:00] VITALS: BP 130/56
[2018-05-14 06:25] LABS: HEMATOCRIT 37.4 % (42.0-54.0); HEMOGLOBIN 12.6 g/dL (13.5-17.5); MCH 28.8 pg (26.0-34.0); MCHC 33.7 g/dL (31.0-37.0); MCV 85.6 fL (80.0-100.0); MEAN PLATELET VOLUME 9.6 fL (7.4-10.4); PLATELET COUNT 215 10x3/uL (130-400); RBC 4.37 10x6/uL (4.20-6.10); RDW 14.8 % (11.5-14.5); WBC 5.4 10x3/uL (4.8-10.8)
[2018-05-14 06:44] LABS: ALBUMIN 3.1 g/dL (3.4-5.0); ANION GAP 13.7 mmol/L (8-16); BILIRUBIN - TOTAL 0.43 mg/dL (0.2-1.3); CALCIUM 8.1 mg/dL (8.5-10.1); CARBON DIOXIDE 23.9 mmol/L (21.0-32.0); CREATININE - SERUM 1.2 mg/dL (0.6-1.3); POTASSIUM - SERUM 3.6 mmol/L (3.5-5.1); PROTEIN - SERUM 6.9 g/dL (6.4-8.2)
--- NOTE | 2018-05-14 08:00 | NUR ---
PATIENT ASSISTED TO BR. BED CHANGED AND CLEANED UP. ASSISTED BACK TO BED WITH NO COMPLAINTS OR PROBLEMS. CALL LIGHT WITHIN REACH. PATIENT MORE SHAKEY AND WEAK THIS AM.
[2018-05-14 08:25] LABS: LYMPHOCYTES 21 % (15-50); MONOCYTES 21 % (2-11); NEUTROPHILS 56 % (40-80); PLATELET ESTIMATE NORMAL
[2018-05-14 14:49] VITALS: BP 122/71
--- NOTE | 2018-05-14 15:46 | MORECARE ---
CASE MANAGEMENT DISCHARGE SUMMARY PATIENT: VINCENZO STEVENSON UNIT: [id number] ADM DATE: 05/10/18 AGE: 72 : 43 SEX: M ROOM/BED: D.2215 AUTHOR: HANNAH,DOC PHYSICIAN: REFERRING PHYSICIAN: DENILSON WILKINSON DO DATE OF SERVICE: 05/14/18 Discharge Plan Patient Name: VINCENZO STEVENSON Facility: [facility]:[place] : 1945 Planned Disposition: Home or Self Care Anticipated Discharge Date: Discharge Date: Expected LOS: Initial Reviewer: [email or web address] Initial Review Date: 05/10/2018 Generated: 05/14/18 4:46 pm Comments DCP- Discharge Planning Updated by [id number]: Kayy Mcconnell on 05/14/18 2:[address] PATIENT IS RESTING IN LAURA BED. HIS SON AND DAUGHTER HAVE REPORTEDLY BEEN AT THE BEDSIDE. THE NURSE REPORTS THE LAURA BED WILL BE DISCONTINUED TODAY. PATIENT IS SOMEWHAT LESS CONFUSED. CM MET HIS DAUGHTER, JAYDA GUILLEN AT THE BEDSIDE THIS PM. SHE STATES THE PATIENT LIVES ALONE. HIS SON LIVES NEARBY AND CHECKS ON HIS OFTEN. HE HAS BEEN INDEPENDENT IN HIS CARE. HE HAS MANAGED WITHOUT DIFFICULTY UTIL THIS TIME. HAS A CANE TO ASSIST W/ AMBULATION. DTR DENIES ANY ADDITIONAL DME. THE PATIENT DRIVES TO HIS SISTER'S WHO LIVES ABOUT 10 MILES FROM HIS HOME SOMETIMES. P[facility]- [facility] PATIENT HAS 4 STEPS TO ENTER HIS HOME W/ RAILING. UPDATED THE DTR REGARDING ACUTE REHAB EVAL. OT COMSULT PENDING. PATIENT AMBULATING W/ PHYSICAL THERAPY 250 FT W/ 30% ASSIST. WILL REQUEST RE-EVAL FROM ACUTE REHAB. CM DISCUSSED SKILLED REHAB OPTIONS. PROVIDED THE DAUGHTER WITH A LIST OF FACILITIES FOR SKILLED REHAB. JAYDA GUILLEN- DTR- [phone]- LIVES IN [place] YAIR GUILLEN- SON- [phone]- LIVES IN [place] CM TO FOLLOW TO ASSIST W/ DISCHARGE PLANNING. DCP- Discharge Planning Updated by [id number]: Aminah Johnson on 05/11/18 2:[address] Patient Name: VINCENZO STEVENSON Admission Status: ER Accout number: [id number] Admission Date: 05-10-2018 : 1945 Admission Diagnosis: Attending: DENILSON WILKINSON Current LOS: 1 Anticipated DC Date: Planned Disposition: Home or Self Care Primary Insurance: MEDICARE A & B Discharge Planning Comments: CM met with patient to complete initial dc planning assessment. CM educated patient on the CM role and verbal consent given by patient to complete assessment. Patient lives at home where he lives by himself, and states he is independent with his care. His son who lives close by stops in multiple times a day to check on him. At discharge patient plans to return home and feels this is a safe discharge. CM discussed availability of home health, rehab services, and medical equipment. He has a cane, but does not use it all the time. His son Leon, will be the one to drive him home. Patient denied known discharge needs at this time. They will see/talk about home health, but does not think they will need it. CM will continue to follow and will assist as needed with dc plans/needs. Rollway Man: Aminah Johnson DCPIA - Discharge Planning Initial Assessment Updated by [id number]: Aminah Johnson on 05/11/18 3:31 pm * Is the patient Alert and Oriented? Yes * How many steps to enter\exit or inside your home? * PCP NAKIA * Pharmacy [facility] * Preadmission Environment Home Alone * ADLs Independent * Equipment Cane * List name and contact numbers for known caregivers / representatives who currently or will assist patient after discharge: LEON (SON) [phone] * Verbal permission to speak to the caregivers and representatives has been obtained from the patient. Yes * Community resources currently utilized None * Additional services required to return to the preadmission environment? No * Can the patient safely return to the preadmission environment? Yes * Has this patient been hospitalized within the prior 30 days at any hospital? No Last DP export: 05/11/18 2:38 pm Patient Name: VINCENZO STEVENSON Page [phone] at 6532 All edits/amendments must be made on the electronic document DICTATION DATE: 05/14/181 DOUGH MIXER: SUE 05/14/181545 RPT#: [id number] DC DATE: STATUS: ADM IN [facility] [address] [place] [address] END OF REPORT
--- NOTE | 2018-05-14 17:15 | NUR ---
PATIENT TAKEN OUT OF LARUA BED AND PLACE IN REGULAR BED WITH BED ALARM. PATIENT COOPERATIVE ALL DAY WITH BOTH SIDES UNZIPPED AND NO PROBLEMS. FAMILY AT BEDSIDE AT THIS TIME. WILL CONTINUE TO MONITOR. BED ALARM ON AND WORKING. CALL LIGHT WITHIN REACH.
--- NOTE | 2018-05-14 17:57 | MORECARE ---
CASE MANAGEMENT DISCHARGE SUMMARY PATIENT: VINCENZO STEVENSON UNIT: [id number] ADM DATE: 05/10/18 AGE: 72 : 43 SEX: M ROOM/BED: D.2215 AUTHOR: HANNAH,DOC PHYSICIAN: REFERRING PHYSICIAN: DENILSON WILKINSON DO DATE OF SERVICE: 05/14/18 Discharge Plan Patient Name: VINCENZO STEVENSON Facility: [facility]:[place] : 1945 Planned Disposition: Home or Self Care Anticipated Discharge Date: Discharge Date: Expected LOS: Initial Reviewer: [email or web address] Initial Review Date: 05/10/2018 Generated: 05/14/18 6:57 pm Comments DCP- Discharge Planning Updated by [email or web address]: Kayy Mcconnell on 05/14/18 4:[address] SPOKE W/ BAYRON, ACUTE REHAB SCREENER. SHE WILL RESCREEN THE PATIENT IN THE AM. PATIENT OUT OF LAURA BED. LESS CONFUSED AND RESTLESS. CXR IMPROVED. STILL W/ NASALO2 AT 2/L. DCP- Discharge Planning Updated by [email or web address]: Kayy Mcconnell on 05/14/18 2:[address] PATIENT IS RESTING IN LAURA BED. HIS SON AND DAUGHTER HAVE REPORTEDLY BEEN AT THE BEDSIDE. THE NURSE REPORTS THE LAURA BED WILL BE DISCONTINUED TODAY. PATIENT IS SOMEWHAT LESS CONFUSED. CM MET HIS DAUGHTER, JAYDA GUILLEN AT THE BEDSIDE THIS PM. SHE STATES THE PATIENT LIVES ALONE. HIS SON LIVES NEARBY AND CHECKS ON HIS OFTEN. HE HAS BEEN INDEPENDENT IN HIS CARE. HE HAS MANAGED WITHOUT DIFFICULTY UTIL THIS TIME. HAS A CANE TO ASSIST W/ AMBULATION. DTR DENIES ANY ADDITIONAL DME. THE PATIENT DRIVES TO HIS SISTER'S WHO LIVES ABOUT 10 MILES FROM HIS HOME SOMETIMES. PCP- [facility] PATIENT HAS 4 STEPS TO ENTER HIS HOME W/ RAILING. UPDATED THE DTR REGARDING ACUTE REHAB EVAL. OT COMSULT PENDING. PATIENT AMBULATING W/ PHYSICAL THERAPY 250 FT W/ 30% ASSIST. WILL REQUEST RE-EVAL FROM ACUTE REHAB. CM DISCUSSED SKILLED REHAB OPTIONS. PROVIDED THE DAUGHTER WITH A LIST OF FACILITIES FOR SKILLED REHAB. JAYDA GUILLEN- DTR- [phone]- LIVES IN [place] GUILLEN- SON- [phone]- LIVES IN [place] CM TO FOLLOW TO ASSIST W/ DISCHARGE PLANNING. DCP- Discharge Planning Updated by [email or web address]: Aminah Johnson on 05/11/18 2:[address] Patient Name: VINCENZO STEVENSON Admission Status: ER Accout number: [id number] Admission Date: 05-10-2018 : 1945 Admission Diagnosis: Attending: DENILSON WILKINSON Current LOS: 1 Anticipated DC Date: Planned Disposition: Home or Self Care Primary Insurance: MEDICARE A & B Discharge Planning Comments: CM met with patient to complete initial dc planning assessment. CM educated patient on the CM role and verbal consent given by patient to complete assessment. Patient lives at home where he lives by himself, and states he is independent with his care. His son who lives close by stops in multiple times a day to check on him. At discharge patient plans to return home and feels this is a safe discharge. CM discussed availability of home health, rehab services, and medical equipment. He has a cane, but does not use it all the time. His son Leon, will be the one to drive him home. Patient denied known discharge needs at this time. They will see/talk about home health, but does not think they will need it. CM will continue to follow and will assist as needed with dc plans/needs. Machine Grainer: Aminah Johnson DCPIA - Discharge Planning Initial Assessment Updated by [email or web address]: Aminah Johnson on 05/11/18 3:31 pm * Is the patient Alert and Oriented? Yes * How many steps to enter\exit or inside your home? * PCP NAKIA * Pharmacy [facility] * Preadmission Environment Home Alone * ADLs Independent * Equipment Cane * List name and contact numbers for known caregivers / representatives who currently or will assist patient after discharge: LEON (SON) [phone] * Verbal permission to speak to the caregivers and representatives has been obtained from the patient. Yes * Community resources currently utilized None * Additional services required to return to the preadmission environment? No * Can the patient safely return to the preadmission environment? Yes * Has this patient been hospitalized within the prior 30 days at any hospital? No Last DP export: 05/14/18 2:46 pm Patient Name: VINCENZO STEVENSON Page [id number] at 1757 All edits/amendments must be made on the electronic document DICTATION DATE: 05/14/181756 PIERCER: SUE 05/14/181756 RPT#: [id number] DC DATE: STATUS: ADM IN [facility] [address] [place] [address] END OF REPORT
[2018-05-14 18:17] VITALS: BP 122/72
--- NOTE | 2018-05-14 19:00 | NUR ---
REPORT RECEIVED AND CARE OF PT ASSUMED. PT LYING IN SUPINE POSITION VISITING WITH SON AT THIS TIME. NO IV. BED ALARM IN USE FOR SAFETY.
--- NOTE | 2018-05-14 20:00 | NUR ---
PT UP TO SHOWER WITH SON'S ASSISTANCE. C/O NECK PAIN AND THOUGHT HOT SHOWER WOULD MAKE HIM FEEL BETTER.
[2018-05-14 20:23] VITALS: BP 122/82
--- NOTE | 2018-05-14 20:30 | NUR ---
HS MEDICATIONS GIVEN TO INCLUDE TYLENOL 1000 MG PO PER REQUEST FOR GENERALIZED PAIN AND PAIN IN NECK, PER PRN ORDER. WILL CONTINUE TO MONITOR FOR NEEDS. BED ALARM IN USE FOR SAFETY.
[2018-05-15 05:27] VITALS: BP 125/87
[2018-05-15 07:58] LABS: BASOPHILS 0.5 % (0-2); EOSINOPHILS 0.9 % (0-7); HEMOGLOBIN 12.3 g/dL (13.5-17.5); IMMATURE GRANULOCYTES 0.2 % (0-5); LYMPHOCYTES 26.3 % (15-50); MCH 28.9 pg (26.0-34.0); MCHC 34.2 g/dL (31.0-37.0); MCV 84.7 fL (80.0-100.0); MEAN PLATELET VOLUME 9.8 fL (7.4-10.4); MONOCYTES 14.9 % (2-11); NEUTROPHILS 57.2 % (40-80); PLATELET COUNT 225 10x3/uL (130-400); RBC 4.25 10x6/uL (4.20-6.10); RDW 15.1 % (11.5-14.5); WBC 6.4 10x3/uL (4.8-10.8)
[2018-05-15 08:00] VITALS: BP 156/83
[2018-05-15 08:21] LABS: ANION GAP 15.5 mmol/L (8-16); BILIRUBIN - TOTAL 0.41 mg/dL (0.2-1.3); CALCIUM 7.9 mg/dL (8.5-10.1); CREATININE - SERUM 1.2 mg/dL (0.6-1.3); POTASSIUM - SERUM 3.5 mmol/L (3.5-5.1); PROTEIN - SERUM 6.6 g/dL (6.4-8.2)
--- NOTE | 2018-05-15 08:30 | NUR ---
PATIENT IN BED WITH NO COMPLAINTS AT THIS TIME. BED ALAM ON. CALL LIGHT WITHIN REACH.
--- NOTE | 2018-05-15 10:45 | NUR ---
PATIENT RECIEVED ORAL CARE AT THIS TIME. NO COMPLAINTS. COUGHED UP SMALL AMOUNT OF BROWN SPUTUM. BED ALARM ON. CALL LIGHT WITHIN REACH.
[2018-05-15 14:00] VITALS: BP 122/69
--- NOTE | 2018-05-15 14:18 | NUR ---
NUTRITION F//U CHART REVIEWED, PT VISIT. TOLERATING AHA DIET WITH 50% INTAKE RECENT MEALS. WILL CONTINUE TO PROVIDE DIET, MONITOR PO INTAKE. RD FOLLOWING
--- NOTE | 2018-05-15 14:49 | NUR ---
Patient remains confused and disoriented. According to the PT notes he is ambulating 250 ft and is min assist with all ADL's. Rehab will no no longer follow this patient. Yina Blunt RN Clinical Liaison, Rehab
--- NOTE | 2018-05-15 15:36 | NUR ---
OT NOTE: PT COMPLETED BED MOB TASKS WITH MIN A. PT COMPLETED SUPINE TO SIT WITH MIN A. PT COMPLETED UE AROM EXS AT EOB. PT COMPLETED SIMPLE GROOMING TASKS WITH SET UP. THANK YOU, ANNALEE FIORE
[2018-05-15 17:28] LABS: APPEARANCE CLEAR (CLEAR); BILIRUBIN NEGATIVE (NEGATIVE); COLOR YELLOW (YELLOW); GLUCOSE NEGATIVE (NEGATIVE); KETONE NEGATIVE (NEGATIVE); NITRITE NEGATIVE (NEGATIVE); PROTEIN NEGATIVE (NEGATIVE); SPECIFIC GRAVITY 1.025 (1.005-1.020); UROBILINOGEN NORMAL (NORMAL)
[2018-05-15 18:01] VITALS: BP 138/79
--- NOTE | 2018-05-15 18:56 | NUR ---
PATIENT IN BED WITH NO COMPLAINTS OR SIGNS OF DISTRESS. FAMILY AT SIDE. CALL LIGHT WITHIN REACH. BA ON.
[2018-05-15 20:00] VITALS: BP 143/79
--- NOTE | 2018-05-15 20:00 | NUR ---
ASSESSMENT PER FLOWSHEET. PATIENT WALKS OUT INTO HALLWAY TRYING TO FIND THE BATHROOM. ASSISTED BACK TO HIS ROOM AND INTO BATHROOM TO VOID ASSISTED BACK TO BED. SR UP X2 CALL LIGHT WITHIN REACH.
--- NOTE | 2018-05-15 21:15 | NUR ---
MEDS GIVEN FL MAR. RESTING QUIETLY.
--- NOTE | 2018-05-16 | NUR ---
EYES CLOSED RESPIRATIONS WITH EASE AND UNLABORED.
[2018-05-16 04:00] VITALS: BP 131/71
--- NOTE | 2018-05-16 04:13 | NUR ---
UP WITH HELP TO BR VOIDS WELL ASSISTED BACK TO BED. SR UP X2 CALL LIGHT WITHIN REACH.
[2018-05-16 05:37] LABS: BASOPHILS 0.4 % (0-2); EOSINOPHILS 0.9 % (0-7); HEMATOCRIT 36.2 % (42.0-54.0); IMMATURE GRANULOCYTES 0.3 % (0-5); LYMPHOCYTES 23.6 % (15-50); MCH 28.6 pg (26.0-34.0); MCHC 33.1 g/dL (31.0-37.0); MCV 86.2 fL (80.0-100.0); MEAN PLATELET VOLUME 9.6 fL (7.4-10.4); MONOCYTES 13.6 % (2-11); NEUTROPHILS 61.2 % (40-80); PLATELET COUNT 229 10x3/uL (130-400)
[2018-05-16 06:21] LABS: ALBUMIN 2.8 g/dL (3.4-5.0); ANION GAP 10.2 mmol/L (8-16); BILIRUBIN - TOTAL 0.43 mg/dL (0.2-1.3); CALCIUM 7.8 mg/dL (8.5-10.1); CARBON DIOXIDE 26.1 mmol/L (21.0-32.0); CREATININE - SERUM 1.3 mg/dL (0.6-1.3); POTASSIUM - SERUM 3.3 mmol/L (3.5-5.1); PROTEIN - SERUM 6.6 g/dL (6.4-8.2)
--- NOTE | 2018-05-16 08:00 | NUR ---
PT IS WITHOUT NEEDS.CALL LIGHT IN REACH
[2018-05-16 08:17] VITALS: BP 137/77
[2018-05-16 13:27] VITALS: BP 122/73
--- NOTE | 2018-05-16 14:02 | NUR ---
OT NOTE: PT ATTEMPTING TO SIT UP ON EDGE OF BED. UPON ENTERING ROOM, PT STATED THAT HE WAS READY TO GO. STATED THAT HE WANTED TO GET UP AND GET DRESSED. PROVIDED PT WITH WARM WASHCLOTH TO WASH FACE, HANDS, AND UPPPER BODY WITH MIN ASSIST. MAX ASSIST WITH BACK; MOD ASSIST WITH LE BATHING. MIN/MOD ASSIST TO DEMETRI JEANS; AND MIN ASSIST FOR BALANCE WHILE PT PERFORMED CLOTHING MGMT. SET UP FOR [employer]LE [employer] APPLICATION DEVELOPER T SHIRT. TRANSFERRED TO CHAIR WITH MIN ASSIST; ABLE TO STAND AT SINK WITH MIN ASSIST FOR BALANCE. PLACED ALARM IN CHAIR AND TURNED ON; EDUCATED PT ON USE OF CALL LIGHT .. NO NEEDS REPORTED. HOWEVER, APPROX 30 MIN LATER, ALARM WAS GOING OFF AND PT HAD AMBULATED TO BATHROOM WITHOUT ASSIST. DISCUSSED SAFETY ISSUES, HOWEVER, PT APPEARS MORE CONFUSED TODAY THAN YESTERDAY. CONTINUES TO THINK THAT HE IS LEAVING BUT IS UNSURE WHERE HE IS. RAFFI STYLES, OTR/L
--- NOTE | 2018-05-16 17:11 | NUR ---
OT NOTE: COMPLETED DRESSING TASK WITH MIN A. PT COMPLETED SITTING/STANDING BALANCE WITH CGA/MIN A. PT EXHIBITS DECREASED SAFETY AWARENESS. THANK YOU, ANNALEE FIORE
[2018-05-16 17:28] VITALS: BP 144/79
[2018-05-16 20:00] VITALS: BP 134/78
--- NOTE | 2018-05-16 20:00 | NUR ---
ASSESSMENT PER FLOWSHEET. RESTING QUIETLY IN BED SR UP X2 CALL LIGHT WITHIN REACH LAURA BED ALARM MAT IN USE. REFUSES TO WEAR YELLOW GOWN.
--- NOTE | 2018-05-16 21:30 | NUR ---
MEDS GIVEN PER APR. UP WITH HELP TO BR VOIDS WELL ASSISTED BACK TO BED.
--- NOTE | 2018-05-16 23:53 | NUR ---
RESTING QUIETLY RESPIRATIONS WITH EASE AND UNLABORED.
[2018-05-17 04:00] VITALS: BP 126/76
[2018-05-17 05:27] LABS: BASOPHILS 0.5 % (0-2); EOSINOPHILS 1.3 % (0-7); HEMATOCRIT 35.3 % (42.0-54.0); HEMOGLOBIN 12.1 g/dL (13.5-17.5); IMMATURE GRANULOCYTES 0.4 % (0-5); LYMPHOCYTES 26.3 % (15-50); MCH 29.8 pg (26.0-34.0); MCHC 34.3 g/dL (31.0-37.0); MCV 86.9 fL (80.0-100.0); MEAN PLATELET VOLUME 9.6 fL (7.4-10.4); MONOCYTES 15.3 % (2-11); NEUTROPHILS 56.2 % (40-80); PLATELET COUNT 231 10x3/uL (130-400); RBC 4.06 10x6/uL (4.20-6.10); RDW 15.1 % (11.5-14.5); WBC 7.8 10x3/uL (4.8-10.8)
[2018-05-17 05:43] LABS: ANION GAP 11.8 mmol/L (8-16); CALCIUM 8.1 mg/dL (8.5-10.1); CARBON DIOXIDE 25.3 mmol/L (21.0-32.0); CREATININE - SERUM 1.2 mg/dL (0.6-1.3)
--- NOTE | 2018-05-17 06:38 | NUR ---
MEDS GIVEN PER MAR.
[2018-05-17 06:50] LABS: POTASSIUM - SERUM 4.1 mmol/L (3.5-5.1)
--- NOTE | 2018-05-17 08:17 | NUR ---
PT UP ALARM SOUNDING. ASSITED PT BACK TO BED. "READY TO TAKE A SHOWER". EXPLAINED TO PT WE WOULD BE ASSISTING HIM WITH A SHOWER TODAY. PT IN BED WITH ALARM ON. NO S/S OF ACUTE DISTRESS. CL IN PLACE.
[2018-05-17 09:41] VITALS: BP 123/70
--- NOTE | 2018-05-17 13:18 | NUR ---
OT NOTE: PT PERFORMED WELL TODAY, HOWEVER, APPEARS MORE CONFUSED AND DISORIENTED. PT KNEW THAT HE WAS IN A MEDICAL FACILITY, BUT DID NOT KNOW WHERE. CONTINUALLY ASKING WHERE "GIANNI" WAS AND WHEN HE WILL BE BACK. STATING THAT HE IS SUPPOSED TO GO HOME IN JUST A LITTLE BIT, BUT UNABLE TO TELL ME WHERE HIS HOME IS AND IF SOMEONE IS PICKING HIM UP. BED MOB WITH MIN ASSIST; ABLE TO DEMETRI SHIRT WITH MIN ASSIST; PANTS WITH MOD ASSIST; SHOES AND SOCKS WITH MAX ASSIST. TOILETING WITH ASSIST AND CLOTHING MGMT WITH ASSIST FOR BALANCE ONLY. UE AROM EXS TO IMPROVE STRENGTH AND ENDURANCE WHILE SITTING UP IN CHAIR. CHAIR ALARM PLACED AND PT RE INSTRUCTED ON USE OF CALL LIGHT. RAFFI STYLES, OTR/L
[2018-05-17 15:09] VITALS: BP 125/74
--- NOTE | 2018-05-17 15:56 | NUR ---
OT NOTE: PT COMPLETED EOB SITTING BALANCE WITH SPV. PT COMPLETED ADL MOB WITH CGA/MIN A. PT COMPLETED BUE AROM EXS. PT COMPLETED UB DRESSING WITH SPV. THANK YOU, ANNALEE FIORE
[2018-05-17 16:00] VITALS: BP 116/69
--- NOTE | 2018-05-17 19:10 | NUR ---
PT SON GAVE PT SHOWER. PT IN BED WATCHING TV. SON AT BEDSIDE. NO S/S OF ACUTE DISTRESS. CL IN PLACE.
[2018-05-17 20:00] VITALS: BP 121/65
[2018-05-18] VITALS: BP 101/60
[2018-05-18 04:00] VITALS: BP 125/67
[2018-05-18 05:02] LABS: ANION GAP 12.1 mmol/L (8-16); BASOPHILS 0.4 % (0-2); CALCIUM 8.2 mg/dL (8.5-10.1); CARBON DIOXIDE 25.1 mmol/L (21.0-32.0); CREATININE - SERUM 1.2 mg/dL (0.6-1.3); EOSINOPHILS 2.5 % (0-7); HEMATOCRIT 34.7 % (42.0-54.0); HEMOGLOBIN 11.6 g/dL (13.5-17.5); IMMATURE GRANULOCYTES 0.2 % (0-5); MCH 28.7 pg (26.0-34.0); MCHC 33.4 g/dL (31.0-37.0); MCV 85.9 fL (80.0-100.0); MEAN PLATELET VOLUME 9.6 fL (7.4-10.4); MONOCYTES 14.1 % (2-11); NEUTROPHILS 58.8 % (40-80); PLATELET COUNT 250 10x3/uL (130-400); POTASSIUM - SERUM 4.2 mmol/L (3.5-5.1); RBC 4.04 10x6/uL (4.20-6.10)
[2018-05-18 05:05] LABS: WBC 10.1 10x3/uL (4.8-10.8)
[2018-05-18 08:36] VITALS: BP 124/70
--- NOTE | 2018-05-18 09:24 | MORECARE ---
CASE MANAGEMENT DISCHARGE SUMMARY PATIENT: VINCENZO STEVENSON UNIT: [id number] ADM DATE: 05/10/18 AGE: 72 : 43 SEX: M ROOM/BED: D.2215 AUTHOR: HANNAH,DOC PHYSICIAN: REFERRING PHYSICIAN: DENILSON WILKINSON DO DATE OF SERVICE: 05/18/18 Discharge Plan Patient Name: VINCENZO STEVENSON Facility: [facility]:[place] : 1945 Planned Disposition: Home or Self Care Anticipated Discharge Date: Discharge Date: Expected LOS: Initial Reviewer: [email or web address] Initial Review Date: 05/10/2018 Generated: 05/18/18 10:23 am Comments DCP- Discharge Planning Updated by [email or web address]: Kayy Mcconnell on 05/14/18 4:[address] SPOKE W/ BAY[place], ACUTE REHAB SCREENER. SHE WILL RESCREEN THE PATIENT IN THE AM. PATIENT OUT OF LAURA BED. LESS CONFUSED AND RESTLESS. CXR IMPROVED. STILL W/ NASALO2 AT 2/L. DCP- Discharge Planning Updated by [email or web address]: Kayy Mcconnell on 05/14/18 2:[address] PATIENT IS RESTING IN LAURA BED. HIS SON AND DAUGHTER HAVE REPORTEDLY BEEN AT THE BEDSIDE. THE NURSE REPORTS THE LAURA BED WILL BE DISCONTINUED TODAY. PATIENT IS SOMEWHAT LESS CONFUSED. CM MET HIS DAUGHTER, JAYDA GUILLEN AT THE BEDSIDE THIS PM. SHE STATES THE PATIENT LIVES ALONE. HIS SON LIVES NEARBY AND CHECKS ON HIS OFTEN. HE HAS BEEN INDEPENDENT IN HIS CARE. HE HAS MANAGED WITHOUT DIFFICULTY UTIL THIS TIME. HAS A CANE TO ASSIST W/ AMBULATION. DTR DENIES ANY ADDITIONAL DME. THE PATIENT DRIVES TO HIS SISTER'S WHO LIVES ABOUT 10 MILES FROM HIS HOME SOMETIMES. PCP- DR [facility]OSA[facility] PATIENT HAS 4 STEPS TO ENTER HIS HOME W/ RAILING. UPDATED THE DTR REGARDING ACUTE REHAB EVAL. OT COMSULT PENDING. PATIENT AMBULATING W/ PHYSICAL THERAPY 250 FT W/ 30% ASSIST. WILL REQUEST RE-EVAL FROM ACUTE REHAB. CM DISCUSSED SKILLED REHAB OPTIONS. PROVIDED THE DAUGHTER WITH A LIST OF FACILITIES FOR SKILLED REHAB. JAYDA GUILLEN- DTR- [phone]- LIVES IN [place] GUI[place]- SON- [phone]- LIVES IN [place] CM TO FOLLOW TO ASSIST W/ DISCHARGE PLANNING. DCP- Discharge Planning Updated by [email or web address]: Aminah Johnson on 05/11/18 2:[address] Patient Name: VINCENZO STEVENSON Admission Status: ER Accout number: [id number] Admission Date: 05-10-2018 : 1945 Admission Diagnosis: Attending: DENILSON WILKINSON Current LOS: 1 Anticipated DC Date: Planned Disposition: Home or Self Care Primary Insurance: MEDICARE A & B Discharge Planning Comments: CM met with patient to complete initial dc planning assessment. CM educated patient on the CM role and verbal consent given by patient to complete assessment. Patient lives at home where he lives by himself, and states he is independent with his care. His son who lives close by stops in multiple times a day to check on him. At discharge patient plans to return home and feels this is a safe discharge. CM discussed availability of home health, rehab services, and medical equipment. He has a cane, but does not use it all the time. His son Leon, will be the one to drive him home. Patient denied known discharge needs at this time. They will see/talk about home health, but does not think they will need it. CM will continue to follow and will assist as needed with dc plans/needs. Department Assistant: Aminah Johnson DCPIA - Discharge Planning Initial Assessment Updated by [email or web address]: Aminah Johnson on 05/11/18 3:31 pm * Is the patient Alert and Oriented? Yes * How many steps to enter\exit or inside your home? * PCP NAKIA * Pharmacy [facility] * Preadmission Environment Home Alone * ADLs Independent * Equipment Cane * List name and contact numbers for known caregivers / representatives who currently or will assist patient after discharge: LEON (SON) [phone] * Verbal permission to speak to the caregivers and representatives has been obtained from the patient. Yes * Community resources currently utilized None * Additional services required to return to the preadmission environment? No * Can the patient safely return to the preadmission environment? Yes * Has this patient been hospitalized within the prior 30 days at any hospital? No External Providers External Provider: [facility] Next Contact Date: Service Request Date: Service Type: Resolution: Reviewer: Comments: Last DP export: 05/14/18 4:57 pm Patient Name: VINCENZO STEVENSON Page 20056 at 0924 All edits/amendments must be made on the electronic document DICTATION DATE: 05/18/18922 NUCLEAR REACTOR TECHNICIAN: SUE 05/18/18922 RPT#: [id number] DC DATE: STATUS: ADM IN [facility] [address] [place] [address] END OF REPORT
[2018-05-18 12:07] VITALS: BP 105/64
--- NOTE | 2018-05-18 12:41 | MORECARE ---
CASE MANAGEMENT DISCHARGE SUMMARY PATIENT: VINCENZO STEVENSON UNIT: [id number] ADM DATE: 05/10/18 AGE: 72 : 41 SEX: M ROOM/BED: D.2215 AUTHOR: HANNAH,DOC PHYSICIAN: REFERRING PHYSICIAN: DENILSON WILKINSON DO DATE OF SERVICE: 05/18/18 Discharge Plan Patient Name: VINCENZO STEVENSON Facility: [facility]:[place] : 1945 Planned Disposition: Home or Self Care Anticipated Discharge Date: Discharge Date: Expected LOS: Initial Reviewer: [id number] Initial Review Date: 05/10/2018 Generated: 05/18/18 1:41 pm DCP- Discharge Planning Updated by [id number]: Aminah Johnson on 05/18/18 11:[address] PATIENT HAS BEEN ACCEPTED TO [facility], REQUESTED BY HIS SON FADUMO. IMM EXPLAINED OVER THE PHONE WITH FADUMO YAYO ALSO TAKEN OVER THE PHONE. CM WILL CONTINUE TO FOLLOW AND ASSIST WITH DC PLANNING DCP- Discharge Planning Updated by [id number]: Kayy Mcconnell on 05/14/18 4:[address] SPOKE W/ [place], ACUTE REHAB SCREENER. SHE WILL RESCREEN THE PATIENT IN THE AM. PATIENT OUT OF LAURA BED. LESS CONFUSED AND RESTLESS. CXR IMPROVED. STILL W/ NASALO2 AT 2/L. DCP- Discharge Planning Updated by [id number]: Kayy Hamblen on 05/14/18 2:[address] PATIENT IS RESTING IN LAURA BED. HIS SON AND DAUGHTER HAVE REPORTEDLY BEEN AT THE BEDSIDE. THE NURSE REPORTS THE LAURA BED WILL BE DISCONTINUED TODAY. PATIENT IS SOMEWHAT LESS CONFUSED. CM MET HIS DAUGHTER, JAYDA GUILLEN AT THE BEDSIDE THIS PM. SHE STATES THE PATIENT LIVES ALONE. HIS SON LIVES NEARBY AND CHECKS ON HIS OFTEN. HE HAS BEEN INDEPENDENT IN HIS CARE. HE HAS MANAGED WITHOUT DIFFICULTY UTIL THIS TIME. HAS A CANE TO ASSIST W/ AMBULATION. DTR DENIES ANY ADDITIONAL DME. THE PATIENT DRIVES TO HIS SISTER'S WHO LIVES ABOUT 10 MILES FROM HIS HOME SOMETIMES. PCP- DR SOSA- JUANA SEAMAN SIL IN [facility] PATIENT HAS 4 STEPS TO ENTER HIS HOME W/ RAILING. UPDATED THE DTR REGARDING ACUTE REHAB EVAL. OT COMSULT PENDING. PATIENT AMBULATING W/ PHYSICAL THERAPY 250 FT W/ 30% ASSIST. WILL REQUEST RE-EVAL FROM ACUTE REHAB. CM DISCUSSED SKILLED REHAB OPTIONS. PROVIDED THE DAUGHTER WITH A LIST OF FACILITIES FOR SKILLED REHAB. JAYDA GUILLEN- DTR- [phone]- LIVES IN [place]- SON- [phone]- LIVES IN [place] CM TO FOLLOW TO ASSIST W/ DISCHARGE PLANNING. DCP- Discharge Planning Updated by [id number]: Aminah Johnson on 05/11/18 2:[address] Patient Name: VINCENZO STEVENSON Admission Status: ER Accout number: [id number] Admission Date: 05-10-2018 : 1945 Admission Diagnosis: Attending: DENILSON WILKINSON Current LOS: 1 Anticipated DC Date: Planned Disposition: Home or Self Care Primary Insurance: MEDICARE A & B Discharge Planning Comments: CM met with patient to complete initial dc planning assessment. CM educated patient on the CM role and verbal consent given by patient to complete assessment. Patient lives at home where he lives by himself, and states he is independent with his care. His son who lives close by stops in multiple times a day to check on him. At discharge patient plans to return home and feels this is a safe discharge. CM discussed availability of home health, rehab services, and medical equipment. He has a cane, but does not use it all the time. His son Leon, will be the one to drive him home. Patient denied known discharge needs at this time. They will see/talk about home health, but does not think they will need it. CM will continue to follow and will assist as needed with dc plans/needs. Transport Rn: Aminah Johnson DCPIA - Discharge Planning Initial Assessment Updated by [id number]: Aminah Johnson on 05/11/18 3:31 pm * Is the patient Alert and Oriented? Yes * How many steps to enter\exit or inside your home? * PCP NAKIA * Pharmacy [facility] * Preadmission Environment Home Alone * ADLs Independent * Equipment Cane * List name and contact numbers for known caregivers / representatives who currently or will assist patient after discharge: LEON (SON) [phone] * Verbal permission to speak to the caregivers and representatives has been obtained from the patient. Yes * Community resources currently utilized None * Additional services required to return to the preadmission environment? No * Can the patient safely return to the preadmission environment? Yes * Has this patient been hospitalized within the prior 30 days at any hospital? No Coverage Notice Reviewer: [id number] Charlene Johnson Notice Issued Date-Time: 05/18/2018 9:00 Notice Type: IM Discharge Notice Notice Delivered To: Family Member Relationship to Patient: Son Brine Room Laborer Name: FADUMO Delivery Method: PHONE - Phone Ingris Days: Prior Verbal Notification: Yes Recipient Understood Notice: Yes Recipient Signature: Med Rec Note Co-signed by Attending: Coverage Notice Comment: Reviewer: [id number] Charlene Johnson Notice Issued Date-Time: 05/18/2018 9:00 Notice Type: Patient Choice Letter Notice Delivered To: Family Member Relationship to Patient: Son Brine Room Laborer Name: FADUMO Delivery Method: PHONE - Phone Ingris Days: Prior Verbal Notification: Recipient Understood Notice: Yes Recipient Signature: Med Rec Note Co-signed by Attending: Coverage Notice Comment: YAYO Marti DP export: 05/18/18 8:24 a Patient Name: VINCENZO STEVENSON Page [id number] at 1241 All edits/amendments must be made on the electronic document DICTATION DATE: 05/18/181239 SCRAP HOIST OPERATOR: SUE 05/18/181239 RPT#: [id number] DC DATE: STATUS: ADM IN [facility] [address] [place] [address] END OF REPORT
--- NOTE | 2018-05-18 15:24 | NUR ---
OT NOTE: BED MOB WITH MIN ASSIST; IN ROOM AMBULATION WITH MIN ASSIST AND USE OF WALKER. PT CONTINUES WITH CONFUSION AND MILD DISORIENTATION. REQUIRES ASSIST WITH BASIC ADLS. IN AGREEMENT WITH SNF PLACEMENT FOR SAFETY, STRENGTHENING, ADLS, AND COGNITION. RAFFI STYLES, OTR/L
[2018-05-18 16:45] VITALS: BP 106/53
--- NOTE | 2018-05-18 17:11 | NUR ---
OT NOTE: PT COMPLETED ADL MOB AND EOB SITTING BALANCE WITH MIN A-CGA. PT COMPLETED DRESSING TASK WITH CGA. PT COMPLETED UE EXS. THANK YOU, ANNALEE FIORE
[2018-05-18 21:08] VITALS: BP 137/86
[2018-05-19 01:01] VITALS: BP 117/68
[2018-05-19 04:36] LABS: BASOPHILS 0.4 % (0-2); EOSINOPHILS 2.7 % (0-7); HEMATOCRIT 34.6 % (42.0-54.0); HEMOGLOBIN 11.6 g/dL (13.5-17.5); IMMATURE GRANULOCYTES 0.4 % (0-5); LYMPHOCYTES 22.8 % (15-50); MCHC 33.5 g/dL (31.0-37.0); MCV 86.5 fL (80.0-100.0); MEAN PLATELET VOLUME 9.4 fL (7.4-10.4); NEUTROPHILS 58.7 % (40-80); PLATELET COUNT 274 10x3/uL (130-400); RDW 15.2 % (11.5-14.5); WBC 10.4 10x3/uL (4.8-10.8)
[2018-05-19 04:47] LABS: ANION GAP 11.7 mmol/L (8-16); CALCIUM 8.1 mg/dL (8.5-10.1); CARBON DIOXIDE 25.6 mmol/L (21.0-32.0); CREATININE - SERUM 1.2 mg/dL (0.6-1.3); POTASSIUM - SERUM 4.3 mmol/L (3.5-5.1)
[2018-05-19 05:19] VITALS: BP 115/59
[2018-05-19 08:43] VITALS: BP 126/66
[2018-05-19] MEDS ORDERED: LEVOFLOXACIN500 MG PO (12:56)
[2018-05-19] MEDS ORDERED: LEVAQUIN750 MG PO (13:02)
--- NOTE | 2018-05-19 13:22 | MORECARE ---
CASE MANAGEMENT DISCHARGE SUMMARY PATIENT: VINCENZO STEVENSON UNIT: [id number] ADM DATE: 05/10/18 AGE: 72 : 43 SEX: M ROOM/BED: D.2215 AUTHOR: HANNAH,DOC PHYSICIAN: REFERRING PHYSICIAN: DENILSON WILKINSON DO DATE OF SERVICE: 05/19/18 Discharge Plan Patient Name: VINCENZO STEVENSON Facility: [facility]:[place] : 1945 Planned Disposition: Home or Self Care Anticipated Discharge Date: Discharge Date: Expected LOS: Initial Reviewer: [email or web address] Initial Review Date: 05/10/2018 Generated: 05/19/18 2:22 pm Comments DCP- Discharge Planning Updated by [email or web address]: Aminah Johnson on 05/19/18 12:[address] Patient will be discharging to [place] to a skilled bed, they will pick him up at 1430, Notified Fadumo (son) of hop picker time. CM will continue to follow and assist as needed DCP- Discharge Planning Updated by [id number]: Aminah Johnson on 05/18/18 11:[address] PATIENT HAS BEEN ACCEPTED TO [facility], REQUESTED BY HIS SON FADUMO. IMM EXPLAINED OVER THE PHONE WITH FADUMO ZEE ALSO TAKEN OVER THE PHONE. CM WILL CONTINUE TO FOLLOW AND ASSIST WITH DC PLANNING DCP- Discharge Planning Updated by [id number]: Kayy Mcconnell on 05/14/18 4:[address] SPOKE W/ [place], ACUTE REHAB SCREENER. SHE WILL RESCREEN THE PATIENT IN THE AM. PATIENT OUT OF LAURA BED. LESS CONFUSED AND RESTLESS. CXR IMPROVED. STILL W/ NASALO2 AT 2/L. DCP- Discharge Planning Updated by [id number]: Kayy Donley on 05/14/18 2:[address] PATIENT IS RESTING IN LAURA BED. HIS SON AND DAUGHTER HAVE REPORTEDLY BEEN AT THE BEDSIDE. THE NURSE REPORTS THE LAURA BED WILL BE DISCONTINUED TODAY. PATIENT IS SOMEWHAT LESS CONFUSED. CM MET HIS DAUGHTER, JAYDA GUILLEN AT THE BEDSIDE THIS PM. SHE STATES THE PATIENT LIVES ALONE. HIS SON LIVES NEARBY AND CHECKS ON HIS OFTEN. HE HAS BEEN INDEPENDENT IN HIS CARE. HE HAS MANAGED WITHOUT DIFFICULTY UTIL THIS TIME. HAS A CANE TO ASSIST W/ AMBULATION. DTR DENIES ANY ADDITIONAL DME. THE PATIENT DRIVES TO HIS SISTER'S WHO LIVES ABOUT 10 MILES FROM HIS HOME SOMETIMES. PCP- DR SOSA- JUANA MUJICA IN [facility] PATIENT HAS 4 STEPS TO ENTER HIS HOME W/ RAILING. UPDATED THE DTR REGARDING ACUTE REHAB EVAL. OT COMSULT PENDING. PATIENT AMBULATING W/ PHYSICAL THERAPY 250 FT W/ 30% ASSIST. WILL REQUEST RE-EVAL FROM ACUTE REHAB. CM DISCUSSED SKILLED REHAB OPTIONS. PROVIDED THE DAUGHTER WITH A LIST OF FACILITIES FOR SKILLED REHAB. JAYDA GUILLEN- DTR- [phone]- LIVES IN [place]- SON- [phone]- LIVES IN [place] CM TO FOLLOW TO ASSIST W/ DISCHARGE PLANNING. DCP- Discharge Planning Updated by [id number]: Aminah Johnson on 05/11/18 2:[address] Patient Name: VINCENZO STEVENSON Admission Status: ER Accout number: [id number] Admission Date: 05-10-2018 : 1945 Admission Diagnosis: Attending: DENILSON WILKINSON Current LOS: 1 Anticipated DC Date: Planned Disposition: Home or Self Care Primary Insurance: MEDICARE A & B Discharge Planning Comments: CM met with patient to complete initial dc planning assessment. CM educated patient on the CM role and verbal consent given by patient to complete assessment. Patient lives at home where he lives by himself, and states he is independent with his care. His son who lives close by stops in multiple times a day to check on him. At discharge patient plans to return home and feels this is a safe discharge. CM discussed availability of home health, rehab services, and medical equipment. He has a cane, but does not use it all the time. His son Leon, will be the one to drive him home. Patient denied known discharge needs at this time. They will see/talk about home health, but does not think they will need it. CM will continue to follow and will assist as needed with dc plans/needs. Photo Stylist: Aminah Johnson DCPIA - Discharge Planning Initial Assessment Updated by [id number]: Aminah Johnson on 05/11/18 3:31 pm * Is the patient Alert and Oriented? Yes * How many steps to enter\exit or inside your home? * PCP NAKIA * [facility]acy [facility] * Preadmission Environment Home Alone * ADLs Independent * Equipment Cane * List name and contact numbers for known caregivers / representatives who currently or will assist patient after discharge: LEON (SON) [phone] * Verbal permission to speak to the caregivers and representatives has been obtained from the patient. Yes * Community resources currently utilized None * Additional services required to return to the preadmission environment? No * Can the patient safely return to the preadmission environment? Yes * Has this patient been hospitalized within the prior 30 days at any hospital? No Coverage Notice Reviewer: [id number] Charlene Johnson Notice Issued Date-Time: 05/18/2018 9:00 Notice Type: IM Discharge Notice Notice Delivered To: Family Member Relationship to Patient: Son Parcel Post Truck Driver Name: FADUMO Delivery Method: PHONE - Phone Ingris Days: Prior Verbal Notification: Yes Recipient Understood Notice: Yes Recipient Signature: Med Rec Note Co-signed by Attending: Coverage Notice Comment: Reviewer: [id number] Charlene Johnson Notice Issued Date-Time: 05/18/2018 9:00 Notice Type: Patient Choice Letter Notice Delivered To: Family Member Relationship to Patient: Son Parcel Post Truck Driver Name: FADUMO Delivery Method: PHONE - Phone Ingris Days: Prior Verbal Notification: Recipient Understood Notice: Yes Recipient Signature: Med Rec Note Co-signed by Attending: Coverage Notice Comment: YAYO Marti DP export: 05/18/18 11:41 a Patient Name: VINCENZO STEVENSON Page [id number] at 1322 All edits/amendments must be made on the electronic document DICTATION DATE: 05/19/18 1322 INSURANCE COUNSELOR: SUE 05/19/18 1322 RPT#: [id number] DC DATE: STATUS: ADM IN [facility] [address] [place] [address] END OF REPORT
--- NOTE | 2018-05-19 13:23 | NUR ---
Nutrition Follow Up: Pt was asleep at the time of RD visit. Interview deferred at this time. Diet: AHA PO Intake: 56% meal avg BM: 05/17/18 Meds and labs reviewed Rec consider liberalizing diet to encourage po intake. Will continue to honor food preferences within diet order. RD following.
[2018-05-19 13:31] VITALS: BP 118/63
--- NOTE | 2018-05-19 21:28 | NUR ---
OT NOTE: PT COMPLETED ADL MOB WITH CGA/MIN A. PT COMPLETED SIT TO STANDS WITH CGA. PT COMPLETED TOILETING TASKS WITH MIN A. PT REQUIRED MOD A GOR TOILET HYGIENE TASKS. THANK YOU, ANNALEE FIORE
== END 2018-05-19 15:05 | DRG 177 ==
LOC: D.ER 16:15 → D.EDHOLD 18:06 → D.MS 18:06
PROVIDERS: Emergency Medicine; Internal Medicine Nephrology; ADMIT Family Medicine; ATTEND Family Medicine
DX: J15.6 Pneumonia due to other Gram-negative bacteria (principal); J96.01 Acute respiratory failure with hypoxia; J18.9 Pneumonia, unspecified organism; I25.10 Atherosclerotic heart disease of native coronary artery without angina pectoris; I10 Essential (primary) hypertension; F03.90 Unspecified dementia, unspecified severity, without behavioral disturbance, psychotic disturbance, mood disturbance, and anxiety; K21.9 Gastro-esophageal reflux disease without esophagitis; I69.919 Unspecified symptoms and signs involving cognitive functions following unspecified cerebrovascular disease; F01.50 Vascular dementia, unspecified severity, without behavioral disturbance, psychotic disturbance, mood disturbance, and anxiety

== ENCOUNTER → 2018-11-09 09:25 | Outpatient (CLI) | payer MEDICARE, OTHER ==
[2018-05-11 13:11] VITALS: BMI 21.7
[~2018-11-09 09:25] MED LIST changes: +CEREFOLIN TAB1 TAB PO; +LEVAQUIN750 MG PO; +LEVOFLOXACIN500 MG PO; +MULTI-DAY VITAM1 TAB PO
--- NOTE | 2018-11-12 09:56 | EC ---
PATIENT:VINCENZO STEVENSON DATE OF SERVICE: 11/09/18 SEX: M MEDICAL RECORD: [id number] DATE OF : [birth year] LOCATION:[facility] AGE OF PATIENT: 72 ADMISSION DATE: 11/09/18 REFERRING PHYSICIAN: INTERPRETING PHYSICIAN: DUSTY CALI MD ECHOCARDIOGRAM REPORT ECHO CHARGES 4 ECHO COMPLETE Date: 11/09/18 CLINICAL DIAGNOSIS: ANDRE/MURMUR H/O HTN/CAD ECHOCARDIOGRAPHIC MEASUREMENTS (adult normal given) AC root (d.<3.7cm) 3.8 cm LV Septum d (<1.2 cm> 1.2 cm Valve Excursion 2.0 cm LV Septum (systole) 1.3 cm Left Atria (s.<4.0cm> 3.0 cm LVPW d(<1.2cm) 1.2 cm RV (d.<2.3cm) 2.5 cm LVPW (sytole) 1.7 cm LV diastole(<5.6CM) 5.2 cm MV E-F(>70mm/sec) cm LV systole 3.6 cm LVOT Diameter 2.0 cm MV exc.(>10mm) cm Est.ejection fraction (50-75%) % DOPPLER: LVIT cm/sec A 78.0 cm/sec E 65.0 cm/sec LA cm/sec RVSP 28.1 mmHg LVOT 137 cm/sec AOP1/2T m/s Asc. Ao 141 cm/sec RVOT 78.0 cm/sec RA cm/sec PA 89.0 cm/sec AV Gradient Peak 7.9 mmHg AV Mean 4.8 mmHg AV Area 3.2 cm MV Gradient Peak 3.4 mmHg MV Mean 1.4 mmHg MV Area cm COMMENTS: OP - HC Element Setter: 1 WOODROW REUBEN University Demonstrator: 3 Dr. Brandt TAPE# PACS Pericardial Effusion N DATE OF SERVICE: 11/09/2018 Adequate 2D echo, color flow imaging, spectral Doppler, and M-Mode. Borderline LVH. LV internal dimensions are normal. LV is mildly globally hypo with EF mildly reduced. Estimated EF 40% to 45%. Aortic valve is tricuspid. No evidence of stenosis by Doppler interrogation. Left atrium is normal at 3.0 cm. Mitral valve shows no prolapse. Trace MR. Right-sided chambers grossly normal. Trace TR. ECHOCARDIOGRAM REPORT [id number] VINCENZO STEVENSON TRANSINT:[id number] Voice Confirmation ID: [id number] DOCUMENT ID: [id number] DUSTY CALI MD at 0956 CC: [id number] DICTATION DATE: 11/11/1850 UNIT TECHNICIAN: 11/11/18 1117 DEP CLI 11/09/18 [place] [id number] [place] [id number]
== END | disposition home or self-care (01) ==
LOC: D.HCCECHO 09:25
PROVIDERS: ATTEND Internal Medicine Interventional Cardiology
DX: R01.1 Cardiac murmur, unspecified (principal)